=== PATIENT | male | born 1970 | race African-American/Black ===

== ENCOUNTER 2018-11-21 07:45 | Inpatient (IN) ==
[2018-11-21] MEDS ORDERED: SODIUM CHLORIDE 0.9% 2,400 ML IV ONE ×2 (08:15→09:11)
[2018-11-21] MEDS ORDERED: VANCOMYCIN INJ 1,500 MG in SODIUM CHLORIDE 0.9% 500 ML IV STA (08:16)
[2018-11-21] MEDS ORDERED: CLINDAMYCIN INJ 600 MG in PREMIX 1 EACH IV STA (08:17)
[2018-11-21] MEDS ORDERED: LEVOFLOXACIN INJ 500 MG in PREMIX 1 EACH IV STA (08:17)
[2018-11-21 08:58] LABS: Red Blood Count 6.48 MC/CUMM (3.8-5.5); White Blood Count 5.8 T/CUMM (4-12)
[2018-11-21 08:59] LABS: Hematocrit 46.6 VOL% (42.0-52.0); Hemoglobin 15.8 GM/DL (14.0-18.0); Mean Corpuscular HGB Conc 33.9 GM/DL (32-36); Mean Corpuscular Volume 71.9 FL (87-102); Mean Platelet Volume 10.2 FL (9.6-12.0); Platelet Count 207 T/CUMM (130-400); Red Cell Distribution Width 14.9 % (9.3-17.3)
[2018-11-21 09:00] LABS: Alanine Aminotransferase 173 U/L (16-61); Albumin 1.9 G/DL (3.4-5.0); Alkaline Phosphatase 131 U/L (45-117); Aspartate Amino Transferase 522 U/L (0-37); Basophils % 0.3 % (0.0-0.8); Blood Urea Nitrogen 51 MG/DL (7-18); Calcium 8.9 MG/DL (8.5-10.1); Eosinophils % 0.2 % (0.00-10.9); Glucose 160 MG/DL (74-106); Immature Granulocytes % 1.4 %; Immature Granulocytes Absolute 0.08 #; Lymphocytes # 0.6 10*3/uL (1.4-4.0); Lymphocytes % 9.9 % (21.2-54.2); Monocytes % 2.4 % (1.7-12.7); Neutrophils % 85.8 % (38.7-73.9); Osmolality,Calculated 276.8 MOS/KG (273-304); Total Protein 7.8 G/DL (6.4-8.3)
[2018-11-21] MEDS ORDERED: BISACODYL 5 MG TABLET PO PRN (09:07)
[2018-11-21] MEDS ORDERED: ALBUTEROL/IPRATROPIUM 3 ML NEB RESP TX PRN (09:07)
[2018-11-21] MEDS ORDERED: ONDANSETRON 4 MG/2 ML VIAL IV PRN (09:07)
[2018-11-21] MEDS ORDERED: VANCOMYCIN INJ 1,250 MG in SODIUM CHLORIDE 0.9% 500 ML IV SCH (09:30)
[2018-11-21 09:41] LABS: INR 1.3; PT Patient Result 13.9 SECS
[2018-11-21 10:34] LABS: Hepatitis B Core IgM Quant 0.06 Index; Hepatitis B Surface Ag Quant 0.16 Index; Hepatitis B Surface Ag Result Negative (Negative); Hepatitis C Virus Ab Quant < 0.02 Index; Hepatitis C Virus Ab Result Negative (Negative)
[2018-11-21] MEDS: HYDROmorphone 2 MG/1 ML VIAL IV PRN (11:03)
[2018-11-21] MEDS: GENTAMICIN INJ 400 MG in SODIUM CHLORIDE 0.9% 100 ML IV SCH (11:44)
[2018-11-21 12:13] LABS: Apearance,Urine Slightly Hazy (Clear); Bilirubin,Urine Negative (Negative); Blood, Urine Large mg/dL (Negative); Glucose,Urine (UA) Negative (Negative); Hyaline Casts,Urine 5 /LPF (0-3); Ketones,Urine Negative (Negative); Mucus,Urine Occasional /LPF (Occasional); Nitrite,Urine Negative (Negative); Protein,Urine 30 MG/DL; RBC,Urine 1 /HPF (0-4); Sperm,Urine Occasional /HPF (Negative); Squamous Epithelial Cell,Urine Occasional /HPF (0-10); Urine Color Amber (Yellow); Urine Specific Gravity 1.013 (1.001-1.035); Urine Urobilinogen < 2.0 EU/DL (0.2-1.0); WBC,Urine 2 /HPF (0-6)
[2018-11-21] MEDS: PIPERACILLIN/TAZOBACTAM 3,375 MG in SODIUM CHLORIDE 0.9% 100 ML IV SCH ×2 (12:30→20:42)
[2018-11-21] MEDS ORDERED: HEPARIN/NACL 0.9% 2 UNITS/ML 500 ML IV ONE (13:34)
[2018-11-21] MEDS ORDERED: fentaNYL 100 MCG/2 ML VIAL ONE (13:46)
[2018-11-21] MEDS ORDERED: KETAMINE 500 MG/10 ML VIAL ONE (13:46)
[2018-11-21] MEDS ORDERED: MIDAZOLAM 2 MG/2 ML VIAL ONE (13:46)
[2018-11-21] MEDS ORDERED: PROPOFOL 200 MG/20 ML VIAL IV ONE (13:46)
[2018-11-21] MEDS ORDERED: PHENYLEPHRINE 1 MG/10 ML SYRINGE IV ONE (13:47)
[2018-11-21] MEDS ORDERED: LACTATED RINGERS 1,000 ML IV ONE (14:56)
[2018-11-21] MEDS: LACTATED RINGERS 1,000 ML IV SCH ×2 (16:15→20:43)
[2018-11-21 16:45] LABS: Hematocrit 29.4 VOL% (42.0-52.0)
[2018-11-21 16:54] LABS: Hemoglobin 9.9 GM/DL (14.0-18.0)
[2018-11-21] MEDS ORDERED: SODIUM CHLORIDE 0.9% 2,000 ML IV ONE ×2 (17:11→19:33)
[2018-11-21] MEDS ORDERED: ALBUMIN 5% 12.5 GM in PREMIX 1 EACH IV ONE ×2 (19:34→20:03)
[2018-11-21] MEDS: NOREPINEPHRINE 8 MG in SODIUM CHLORIDE 0.9% 242 ML IV PRN (19:45)
[2018-11-21] MEDS: ACETAMINOPHEN 325 MG TABLET PO PRN (22:17)
[2018-11-22] MEDS: LACTATED RINGERS 1,000 ML IV SCH ×7 (00:23→22:58)
[2018-11-22] MEDS: HYDROmorphone 2 MG/1 ML VIAL IV PRN ×3 (02:54→19:27)
[2018-11-22] MEDS: PIPERACILLIN/TAZOBACTAM 3,375 MG in SODIUM CHLORIDE 0.9% 100 ML IV SCH ×3 (04:32→19:32)
[2018-11-22 04:45] LABS: Basophils % 0.6 % (0.0-0.8); Eosinophils # 0.1 10*3/uL (0.0-0.87); Eosinophils % 2.1 % (0.00-10.9); Hemoglobin 8.4 GM/DL (14.0-18.0); Immature Granulocytes Absolute 0.13 #; Lymphocytes # 0.2 10*3/uL (1.4-4.0); Lymphocytes % 5.2 % (21.2-54.2); Mean Corpuscular HGB Conc 33.6 GM/DL (32-36); Mean Corpuscular Volume 73.1 FL (87-102); Mean Platelet Volume 11.4 FL (9.6-12.0); Monocytes % 2.4 % (1.7-12.7); Neutrophils % 85.7 % (38.7-73.9); Platelet Count 74 T/CUMM (130-400); Red Blood Count 3.42 MC/CUMM (3.8-5.5); White Blood Count 3.3 T/CUMM (4-12)
[2018-11-22 05:07] LABS: Albumin 1.4 G/DL (3.4-5.0); Bilirubin,Total 4.5 MG/DL (0.2-1.0); Calcium 6.4 MG/DL (8.5-10.1); Osmolality,Calculated 293.1 MOS/KG (273-304); Total Protein 4.4 G/DL (6.4-8.3)
[2018-11-22] MEDS ORDERED: DEXTROSE 10% 250 ML BAG IV ONE (05:24)
[2018-11-22 05:25] LABS: INR 1.2; PT Patient Result 13.4 SECS
[2018-11-22] MEDS ORDERED: GLUCAGON 1 MG VIAL IM ONE (05:25)
[2018-11-22 05:33] LABS: Band Neutrophils 9 % (0-10); Eosinophils 2 % (0-10); Lymphocytes 11 % (20-55); Metamyelocytes 1 %; Myelocytes 1 %; Segmented Neutrophils 72 % (50-85); Total Cells Counted 100
[2018-11-22 05:34] LABS: Anisocytosis Slight; Hypochromasia 1+; Microcytosis 1+; Target Cells Slight
[2018-11-22 05:35] LABS: Platelet Estimate Decreased; Toxic Granulation 1+
[2018-11-22] MEDS ORDERED: SODIUM CHLORIDE 0.9% 1,000 ML IV PRN ×2 (08:20→08:25)
[2018-11-22] MEDS ORDERED: PANTOPRAZOLE 40 MG TABLET PO SCH (09:00)
[2018-11-22] MEDS: NOREPINEPHRINE 8 MG in SODIUM CHLORIDE 0.9% 242 ML IV PRN ×2 (09:05→22:59)
[2018-11-22] MEDS ORDERED: MAGNESIUM SULF RIDER 2 GM in PREMIX 1 EACH IV ONE (10:24)
[2018-11-22] MEDS ORDERED: POTASSIUM CHLORIDE RIDER 20 MEQ in PREMIX 1 EACH IV ONE (10:25)
[2018-11-22] MEDS: VANCOMYCIN INJ 1,250 MG in SODIUM CHLORIDE 0.9% 250 ML IV SCH (11:05)
[2018-11-22] MEDS ORDERED: MIDAZOLAM 2 MG/2 ML VIAL ONE (15:58)
[2018-11-22] MEDS ORDERED: fentaNYL 100 MCG/2 ML VIAL ONE (15:58)
[2018-11-22] MEDS ORDERED: MIDAZOLAM 10 MG/2 ML VIAL ONE (15:58)
[2018-11-22] MEDS ORDERED: ETOMIDATE 40 MG/20 ML VIAL IV ONE (15:58)
[2018-11-22] MEDS ORDERED: SEVOFLURANE 1 UNIT/15 MINUTE INH ONE (15:58)
[2018-11-22] MEDS ORDERED: LACTATED RINGERS 1,000 ML IV ONE (15:59)
[2018-11-22] MEDS ORDERED: PHENYLEPHRINE 1 MG/10 ML SYRINGE IV ONE (15:59)
[2018-11-22] MEDS ORDERED: ROCURONIUM 100 MG/10 ML VIAL IV ONE (15:59)
[2018-11-22] MEDS: PROPOFOL 1,000 MG/100 ML BOTTLE IV SCH (16:11)
[2018-11-22 16:22] LABS: Basophils # 0.1 10*3/uL (0.0-0.2); Basophils % 1.3 % (0.0-0.8); Eosinophils # 0.2 10*3/uL (0.0-0.87); Eosinophils % 3.2 % (0.00-10.9); Hematocrit 28.7 VOL% (42.0-52.0); Hemoglobin 9.4 GM/DL (14.0-18.0); Immature Granulocytes % 2.1 %; Lymphocytes # 0.3 10*3/uL (1.4-4.0); Lymphocytes % 6.7 % (21.2-54.2); Mean Corpuscular HGB Conc 32.8 GM/DL (32-36); Mean Corpuscular Volume 78.6 FL (87-102); Mean Platelet Volume 11.8 FL (9.6-12.0); Monocytes % 2.7 % (1.7-12.7); NRBC # 0.02 10*3/uL; Platelet Count 94 T/CUMM (130-400); Red Blood Count 3.65 MC/CUMM (3.8-5.5); Red Cell Distribution Width 17.9 % (9.3-17.3); White Blood Count 4.8 T/CUMM (4-12)
[2018-11-22 16:39] LABS: INR 1.3; PT Patient Result 13.7 SECS; Partial Thromboplastin Time 34.8 SECS (20-40)
[2018-11-22 17:17] LABS: Acanthocytes Few; Band Neutrophils 10 % (0-10); Eosinophils 2 % (0-10); Lymphocytes 7 % (20-55); Segmented Neutrophils 77 % (50-85)
[2018-11-22 17:18] LABS: Burr Cells Few; Platelet Estimate Decreased; Spherocytes Few; Total Cells Counted 100
[2018-11-22 17:46] LABS: ABG Base Excess -11.8 MMOL/L (-2.5-2.5); ABG HCO3 15.2 MMOL/L (20-26); ABG TCO2 13.2 MMOL/L (23-27); Allen Test Positive; Pt O2 Delivery Device Ventilator
[2018-11-22] MEDS ORDERED: SODIUM CHLORIDE 0.9% 1,000 ML IV ONE (18:48)
[2018-11-23] MEDS: DEXTROSE 10% 250 ML BAG IV PRN ×4 (00:15→14:58)
[2018-11-23] MEDS: HYDROmorphone 2 MG/1 ML VIAL IV PRN ×3 (00:55→12:00)
[2018-11-23 01:51] LABS: Basophils # 0.1 10*3/uL (0.0-0.2); Basophils % 1.3 % (0.0-0.8); Eosinophils # 0.2 10*3/uL (0.0-0.87); Eosinophils % 3.3 % (0.00-10.9); Hematocrit 24.4 VOL% (42.0-52.0); Hemoglobin 8.1 GM/DL (14.0-18.0); Immature Granulocytes % 2.2 %; Immature Granulocytes Absolute 0.12 #; Lymphocytes # 0.6 10*3/uL (1.4-4.0); Lymphocytes % 10.2 % (21.2-54.2); Mean Corpuscular HGB Conc 33.2 GM/DL (32-36); Mean Platelet Volume 12.5 FL (9.6-12.0); Monocytes % 1.3 % (1.7-12.7); Neutrophils % 81.7 % (38.7-73.9); Platelet Count 64 T/CUMM (130-400); Red Blood Count 3.13 MC/CUMM (3.8-5.5); Red Cell Distribution Width 17.6 % (9.3-17.3); White Blood Count 5.4 T/CUMM (4-12)
[2018-11-23 02:06] LABS: ABG Base Excess -11.7 MMOL/L (-2.5-2.5); ABG HCO3 15.2 MMOL/L (20-26); ABG Oxygen Saturation 98.5 % (95-100); ABG PCO2 33.2 MM HG (35-48); ABG PH 7.253 (7.35-7.45); ABG TCO2 13.8 MMOL/L (23-27)
[2018-11-23 02:12] LABS: Albumin 1.1 G/DL (3.4-5.0); Bilirubin,Total 4.7 MG/DL (0.2-1.0); Calcium 6.5 MG/DL (8.5-10.1); Osmolality,Calculated 301.7 MOS/KG (273-304); Total Protein 4.2 G/DL (6.4-8.3)
[2018-11-23] MEDS ORDERED: ALBUMIN 25% 25 GM in PREMIX 1 EACH IV ONE (02:17)
[2018-11-23] MEDS ORDERED: SODIUM CHLORIDE 0.9% 1,000 ML IV ONE ×3 (02:17→13:40)
[2018-11-23 03:05] LABS: Band Neutrophils 9 % (0-10); Eosinophils 1 % (0-10); Lymphocytes 17 % (20-55); Metamyelocytes 3 %; Myelocytes 1 %; Segmented Neutrophils 67 % (50-85); Total Cells Counted 100
[2018-11-23 03:06] LABS: Anisocytosis 1+; Hypochromasia Slight; Microcytosis 1+; Target Cells Few
[2018-11-23 03:07] LABS: Burr Cells Few; Platelet Estimate Decreased
[2018-11-23] MEDS: PIPERACILLIN/TAZOBACTAM 3,375 MG in SODIUM CHLORIDE 0.9% 100 ML IV SCH ×3 (03:55→19:45)
[2018-11-23] MEDS: LACTATED RINGERS 1,000 ML IV SCH ×2 (04:06→05:40)
[2018-11-23] MEDS: NOREPINEPHRINE 16 MG in SODIUM CHLORIDE 0.9% 234 ML IV PRN ×2 (05:12→18:23)
[2018-11-23] MEDS ORDERED: SODIUM BICARB INJ 100 MEQ in SODIUM CHLORIDE 0.45% 1,000 ML IV SCH (08:00)
[2018-11-23] MEDS ORDERED: DEXTROSE 50% 25 GM/50 ML VIAL IV PRN (08:22)
[2018-11-23] MEDS ORDERED: GLUCAGON 1 MG VIAL IM PRN (08:22)
[2018-11-23] MEDS: FAMOTIDINE 20 MG/2 ML VIAL IV SCH ×2 (08:37→20:40)
[2018-11-23] MEDS: PROPOFOL 1,000 MG/100 ML BOTTLE IV SCH ×3 (08:55→21:25)
[2018-11-23] MEDS ORDERED: CALCIUM GLUCONATE 1,000 MG in SODIUM CHLORIDE 0.9% 100 ML IV ONE (09:00)
[2018-11-23] MEDS: VANCOMYCIN INJ 1,250 MG in SODIUM CHLORIDE 0.9% 250 ML IV SCH (10:27)
[2018-11-23] MEDS: GENTAMICIN INJ 400 MG in SODIUM CHLORIDE 0.9% 100 ML IV SCH (10:27)
[2018-11-23 10:48] LABS: Hematocrit 28.2 VOL% (42.0-52.0); Hemoglobin 9.3 GM/DL (14.0-18.0)
[2018-11-23] MEDS: SODIUM HYPOCHLORITE 0.25% IRRIG 473 ML BOTTLE TOP SCH (12:25)
[2018-11-23] MEDS ORDERED: SODIUM CHLORIDE 0.9% 1,000 ML IV SCH (13:40)
[2018-11-23] MEDS ORDERED: SODIUM CHLORIDE 0.9% 1,000 ML IV PRN (14:54)
[2018-11-23] MEDS: SODIUM BICARB INJ 100 MEQ in DEXTROSE 5% NACL 0.22% 1,000 ML IV SCH (15:51)
[2018-11-23] MEDS: INSULIN REGULAR 100 UNIT/ML SUBCUT SCH (18:01)
[2018-11-24] MEDS: INSULIN REGULAR 100 UNIT/ML SUBCUT SCH ×5 (00:15→23:39)
[2018-11-24] MEDS: HYDROmorphone 2 MG/1 ML VIAL IV PRN (00:16)
[2018-11-24] MEDS: SODIUM BICARB INJ 100 MEQ in DEXTROSE 5% NACL 0.22% 1,000 ML IV SCH ×3 (01:09→19:56)
[2018-11-24 03:22] LABS: ABG Base Excess -7.6 MMOL/L (-2.5-2.5); ABG HCO3 18.4 MMOL/L (20-26); ABG Oxygen Saturation 98.9 % (95-100); ABG PCO2 30.1 MM HG (35-48); ABG PH 7.354 (7.35-7.45); ABG TCO2 14.7 MMOL/L (23-27)
[2018-11-24 03:30] LABS: Basophils % 0.2 % (0.0-0.8); Eosinophils # 0.4 10*3/uL (0.0-0.87); Eosinophils % 7.6 % (0.00-10.9); Hematocrit 26.9 VOL% (42.0-52.0); Immature Granulocytes Absolute 0.44 #; Lymphocytes # 0.3 10*3/uL (1.4-4.0); Lymphocytes % 5.8 % (21.2-54.2); Mean Corpuscular HGB Conc 33.5 GM/DL (32-36); Mean Corpuscular Volume 80.8 FL (87-102); Mean Platelet Volume 11.2 FL (9.6-12.0); Monocytes % 4.5 % (1.7-12.7); NRBC # 0.04 10*3/uL; Neutrophils % 73.9 % (38.7-73.9); Red Blood Count 3.33 MC/CUMM (3.8-5.5); Red Cell Distribution Width 19.5 % (9.3-17.3); White Blood Count 5.5 T/CUMM (4-12)
[2018-11-24 03:40] LABS: Platelet Count 32 T/CUMM (130-400)
[2018-11-24 04:06] LABS: Calcium 6.3 MG/DL (8.5-10.1); Osmolality,Calculated 297.7 MOS/KG (273-304)
[2018-11-24 04:11] LABS: Band Neutrophils 13 % (0-10); Eosinophils 11 % (0-10); Lymphocytes 12 % (20-55); Myelocytes 1 %; Segmented Neutrophils 59 % (50-85); Total Cells Counted 100
[2018-11-24 04:12] LABS: Hypochromasia 1+; Microcytosis 1+; Ovalocytes Slight; Platelet Estimate Decreased
[2018-11-24] MEDS: PIPERACILLIN/TAZOBACTAM 3,375 MG in SODIUM CHLORIDE 0.9% 100 ML IV SCH (04:15)
[2018-11-24] MEDS: DEXTROSE 10% 250 ML BAG IV PRN ×2 (04:27→12:58)
[2018-11-24] MEDS: PROPOFOL 1,000 MG/100 ML BOTTLE IV SCH ×4 (07:07→23:04)
[2018-11-24] MEDS ORDERED: SODIUM HYPOCHLORITE 0.25% IRRIG 473 ML BOTTLE ONE (10:47)
[2018-11-24] MEDS: MEROPENEM 500 MG in SODIUM CHLORIDE 0.9% 100 ML IV SCH ×3 (11:02→23:40)
[2018-11-24] MEDS: VANCOMYCIN INJ 1,250 MG in SODIUM CHLORIDE 0.9% 250 ML IV SCH (11:11)
[2018-11-24] MEDS: FAMOTIDINE 20 MG/2 ML VIAL IV SCH ×2 (11:16→20:05)
[2018-11-24] MEDS ORDERED: HYDROmorphone 2 MG/1 ML VIAL IV ONE (12:55)
[2018-11-24] MEDS: SODIUM HYPOCHLORITE 0.25% IRRIG 473 ML BOTTLE TOP SCH (13:58)
[2018-11-24] MEDS: CLINDAMYCIN INJ 900 MG in PREMIX 1 EACH IV SCH ×2 (14:36→21:23)
[2018-11-24] MEDS ORDERED: ACETAMINOPHEN 325 MG/10.15 ML UDCUP PO ONE (20:13)
[2018-11-24] MEDS ORDERED: SODIUM CHLORIDE 0.9% 1,000 ML IV ONE (20:14)
[2018-11-24] MEDS: NOREPINEPHRINE 16 MG in SODIUM CHLORIDE 0.9% 234 ML IV PRN (23:10)
[2018-11-25 04:36] LABS: Basophils % 0.2 % (0.0-0.8); Eosinophils # 0.2 10*3/uL (0.0-0.87); Eosinophils % 4.3 % (0.00-10.9); Hematocrit 25.5 VOL% (42.0-52.0); Hemoglobin 8.6 GM/DL (14.0-18.0); Immature Granulocytes Absolute 0.11 #; Lymphocytes # 0.5 10*3/uL (1.4-4.0); Lymphocytes % 9.8 % (21.2-54.2); Mean Corpuscular HGB Conc 33.7 GM/DL (32-36); Mean Corpuscular Volume 79.7 FL (87-102); Mean Platelet Volume 11.3 FL (9.6-12.0); NRBC # 0.03 10*3/uL; Neutrophils % 81.7 % (38.7-73.9); Red Cell Distribution Width 19.1 % (9.3-17.3); White Blood Count 5.4 T/CUMM (4-12)
[2018-11-25 04:39] LABS: ABG Base Excess -1.6 MMOL/L (-2.5-2.5); ABG HCO3 23.1 MMOL/L (20-26); ABG PCO2 30.9 MM HG (35-48); ABG PH 7.455 (7.35-7.45)
[2018-11-25 04:40] LABS: Platelet Count 30 T/CUMM (130-400)
[2018-11-25 04:59] LABS: Bilirubin,Direct 4.83 MG/DL (0.0-0.20); Bilirubin,Total 5.4 MG/DL (0.2-1.0); Bilirubin,Total 5.8 MG/DL (0.2-1.0); Calcium 6.8 MG/DL (8.5-10.1); Osmolality,Calculated 304.3 MOS/KG (273-304); Total Protein 4.1 G/DL (6.4-8.3); Total Protein 4.7 G/DL (6.4-8.3)
[2018-11-25 05:15] LABS: Band Neutrophils 17 % (0-10); Eosinophils 5 % (0-10); Lymphocytes 12 % (20-55); Metamyelocytes 5 %; Platelet Estimate Decreased; Segmented Neutrophils 57 % (50-85); Total Cells Counted 100
[2018-11-25 05:16] LABS: Hypochromasia 2+; Target Cells 1+
[2018-11-25] MEDS: INSULIN REGULAR 100 UNIT/ML SUBCUT SCH ×4 (06:04→23:20)
[2018-11-25] MEDS: CLINDAMYCIN INJ 900 MG in PREMIX 1 EACH IV SCH ×3 (06:04→21:30)
[2018-11-25] MEDS: SODIUM BICARB INJ 100 MEQ in DEXTROSE 5% NACL 0.22% 1,000 ML IV SCH ×2 (06:05→16:45)
[2018-11-25] MEDS ORDERED: LACTATED RINGERS 1,000 ML IV ONE (06:26)
[2018-11-25] MEDS: POTASSIUM CHLORIDE RIDER 10 MEQ in PREMIX 1 EACH IV PRN ×5 (07:02→22:02)
[2018-11-25] MEDS: MEROPENEM 500 MG in SODIUM CHLORIDE 0.9% 100 ML IV SCH (08:13)
[2018-11-25] MEDS: FAMOTIDINE 20 MG/2 ML VIAL IV SCH ×2 (08:14→21:15)
[2018-11-25] MEDS: SODIUM HYPOCHLORITE 0.25% IRRIG 473 ML BOTTLE TOP SCH (08:19)
[2018-11-25 09:56] LABS: INR 1.1; PT Patient Result 12.2 SECS (9.6-12.2); Partial Thromboplastin Time 34.5 SECS (20.8-36.0)
[2018-11-25] MEDS ORDERED: SEVOFLURANE 1 UNIT/15 MINUTE INH ONE (11:36)
[2018-11-25] MEDS ORDERED: SODIUM CHLORIDE 0.9% 250 ML IV ONE (11:37)
[2018-11-25] MEDS ORDERED: ROCURONIUM 100 MG/10 ML VIAL IV ONE (11:37)
[2018-11-25] MEDS ORDERED: PHENYLEPHRINE 1 MG/10 ML SYRINGE IV ONE (11:37)
[2018-11-25] MEDS ORDERED: MIDAZOLAM 2 MG/2 ML VIAL ONE (11:37)
[2018-11-25] MEDS ORDERED: PHENYLEPHRINE 10 MG/1 ML VIAL IV ONE (11:37)
[2018-11-25] MEDS ORDERED: CALCIUM GLUCONATE 2,000 MG in SODIUM CHLORIDE 0.9% 100 ML IV ONE (12:00)
[2018-11-25] MEDS: GENTAMICIN INJ 400 MG in SODIUM CHLORIDE 0.9% 100 ML IV SCH (12:44)
[2018-11-25] MEDS: VANCOMYCIN INJ 1,250 MG in SODIUM CHLORIDE 0.9% 250 ML IV SCH (12:44)
[2018-11-25] MEDS: fentaNYL INJ 1,250 MCG in SODIUM CHLORIDE 0.9% 225 ML IV PRN ×2 (12:50→21:01)
[2018-11-25] MEDS ORDERED: LEVOFLOXACIN INJ 750 MG in PREMIX 1 EACH IV SCH (15:00)
[2018-11-25] MEDS: POTASSIUM CHLORIDE RIDER 20 MEQ in PREMIX 1 EACH IV PRN (20:09)
[2018-11-25] MEDS ORDERED: ENOXAPARIN 40 MG/0.4 ML SYRINGE SUBCUT SCH (21:00)
[2018-11-26] MEDS: fentaNYL INJ 1,250 MCG in SODIUM CHLORIDE 0.9% 225 ML IV PRN ×3 (03:46→20:34)
[2018-11-26] MEDS: SODIUM BICARB INJ 100 MEQ in DEXTROSE 5% NACL 0.22% 1,000 ML IV SCH ×3 (03:46→14:38)
[2018-11-26 03:54] LABS: ABG Base Excess 0.6 MMOL/L (-2.5-2.5); ABG HCO3 24.9 MMOL/L (20-26); ABG Oxygen Saturation 98.7 % (95-100); ABG PCO2 38.8 MM HG (35-48); ABG PH 7.417 (7.35-7.45); ABG TCO2 22.8 MMOL/L (23-27)
[2018-11-26 04:03] LABS: Basophils # 0.1 10*3/uL (0.0-0.2); Basophils % 1.7 % (0.0-0.8); Eosinophils # 0.1 10*3/uL (0.0-0.87); Eosinophils % 2.8 % (0.00-10.9); Hematocrit 21.3 VOL% (42.0-52.0); Immature Granulocytes Absolute 0.09 #; Lymphocytes # 0.5 10*3/uL (1.4-4.0); Lymphocytes % 11.5 % (21.2-54.2); Mean Corpuscular HGB Conc 32.9 GM/DL (32-36); Mean Corpuscular Volume 81.6 FL (87-102); Mean Platelet Volume 12.1 FL (9.6-12.0); Monocytes % 3.5 % (1.7-12.7); NRBC # 0.03 10*3/uL; Neutrophils % 78.5 % (38.7-73.9); Red Blood Count 2.61 MC/CUMM (3.8-5.5); Red Cell Distribution Width 19.4 % (9.3-17.3); White Blood Count 4.6 T/CUMM (4-12)
[2018-11-26 04:04] LABS: Platelet Count 26 T/CUMM (130-400)
[2018-11-26] MEDS: CLINDAMYCIN INJ 900 MG in PREMIX 1 EACH IV SCH ×3 (05:30→21:28)
[2018-11-26 06:17] LABS: Band Neutrophils 3 % (0-10); Eosinophils 4 % (0-10); Hypochromasia 2+; Lymphocytes 16 % (20-55); Metamyelocytes 1 %; Myelocytes 1 %; Nucleated Red Blood Cells 1 (0-5); Platelet Estimate Decreased; Reactive Lymphocytes Few; Segmented Neutrophils 72 % (50-85)
[2018-11-26 06:18] LABS: Target Cells Few; Total Cells Counted 100
[2018-11-26] MEDS: INSULIN REGULAR 100 UNIT/ML SUBCUT SCH ×3 (06:19→18:09)
[2018-11-26] MEDS: SODIUM HYPOCHLORITE 0.25% IRRIG 473 ML BOTTLE TOP SCH (09:05)
[2018-11-26] MEDS: FAMOTIDINE 20 MG/2 ML VIAL IV SCH ×2 (09:06→21:26)
[2018-11-26] MEDS: SODIUM CHLORIDE 0.9% 250 ML IV SCH ×2 (09:31→22:38)
[2018-11-26] MEDS: VANCOMYCIN INJ 1,250 MG in SODIUM CHLORIDE 0.9% 250 ML IV SCH (10:20)
[2018-11-26] MEDS: ACETAMINOPHEN 325 MG TABLET PO PRN (15:01)
[2018-11-26] MEDS: HYDROmorphone 2 MG/1 ML VIAL IV PRN (15:24)
[2018-11-27] MEDS: SODIUM BICARB INJ 100 MEQ in DEXTROSE 5% NACL 0.22% 1,000 ML IV SCH ×5 (00:02→23:50)
[2018-11-27] MEDS: INSULIN REGULAR 100 UNIT/ML SUBCUT SCH ×4 (00:04→17:22)
[2018-11-27] MEDS: HYDROmorphone 2 MG/1 ML VIAL IV PRN ×2 (01:44→14:33)
[2018-11-27] MEDS: fentaNYL INJ 1,250 MCG in SODIUM CHLORIDE 0.9% 225 ML IV PRN ×3 (04:00→19:26)
[2018-11-27 04:27] LABS: Basophils % 0.4 % (0.0-0.8); Eosinophils # 0.2 10*3/uL (0.0-0.87); Eosinophils % 2.1 % (0.00-10.9); Hematocrit 27.9 VOL% (42.0-52.0); Hemoglobin 9.4 GM/DL (14.0-18.0); Immature Granulocytes Absolute 0.14 #; Lymphocytes # 0.7 10*3/uL (1.4-4.0); Lymphocytes % 10.3 % (21.2-54.2); Mean Corpuscular HGB Conc 33.7 GM/DL (32-36); Mean Corpuscular Volume 82.5 FL (87-102); Monocytes % 3.8 % (1.7-12.7); NRBC # 0.06 10*3/uL; Neutrophils % 81.4 % (38.7-73.9); Red Blood Count 3.38 MC/CUMM (3.8-5.5); Red Cell Distribution Width 18.3 % (9.3-17.3)
[2018-11-27 04:30] LABS: Platelet Count 19 T/CUMM (130-400)
[2018-11-27 04:42] LABS: ABG Base Excess 2.5 MMOL/L (-2.5-2.5); ABG HCO3 26.7 MMOL/L (20-26); ABG Oxygen Saturation 99.1 % (95-100); ABG PH 7.451 (7.35-7.45); ABG TCO2 24.1 MMOL/L (23-27)
[2018-11-27 04:50] LABS: Band Neutrophils 5 % (0-10); Eosinophils 4 % (0-10); Lymphocytes 15 % (20-55); Nucleated Red Blood Cells 2 (0-5); Platelet Estimate Decreased; Segmented Neutrophils 68 % (50-85); Total Cells Counted 100
[2018-11-27 04:51] LABS: Hypochromasia 1+
[2018-11-27 05:14] LABS: Albumin 0.9 G/DL (3.4-5.0); Bilirubin,Total 4.6 MG/DL (0.2-1.0); Calcium 6.4 MG/DL (8.5-10.1); Osmolality,Calculated 308.9 MOS/KG (273-304); Total Protein 4.6 G/DL (6.4-8.3)
[2018-11-27 05:19] LABS: Prealbumin < 3.0 MG/DL (20-40)
[2018-11-27] MEDS: CLINDAMYCIN INJ 900 MG in PREMIX 1 EACH IV SCH (05:41)
[2018-11-27] MEDS: POTASSIUM CHLORIDE RIDER 20 MEQ in PREMIX 1 EACH IV PRN ×3 (05:57→16:02)
[2018-11-27] MEDS: SODIUM HYPOCHLORITE 0.25% IRRIG 473 ML BOTTLE TOP SCH (08:32)
[2018-11-27] MEDS: FAMOTIDINE 20 MG/2 ML VIAL IV SCH ×2 (08:33→20:15)
[2018-11-27] MEDS: SODIUM CHLORIDE 0.9% 250 ML IV SCH ×2 (09:40→22:57)
[2018-11-27] MEDS: NOREPINEPHRINE 16 MG in SODIUM CHLORIDE 0.9% 234 ML IV PRN (11:52)
[2018-11-27] MEDS: ACETAMINOPHEN 325 MG TABLET PO PRN ×2 (12:02→20:15)
[2018-11-27] MEDS ORDERED: SODIUM CHLORIDE 0.9% 1,000 ML IV PRN (13:26)
[2018-11-27] MEDS: MEROPENEM 500 MG in SODIUM CHLORIDE 0.9% 100 ML IV SCH ×2 (15:22→20:30)
[2018-11-28] MEDS: INSULIN REGULAR 100 UNIT/ML SUBCUT SCH ×5 (00:02→23:55)
[2018-11-28] MEDS: fentaNYL INJ 1,250 MCG in SODIUM CHLORIDE 0.9% 225 ML IV PRN ×3 (02:01→22:12)
[2018-11-28] MEDS: ACETAMINOPHEN 325 MG TABLET PO PRN (02:02)
[2018-11-28] MEDS: MEROPENEM 500 MG in SODIUM CHLORIDE 0.9% 100 ML IV SCH ×3 (03:15→18:13)
[2018-11-28 03:33] LABS: ABG Base Excess 2.9 MMOL/L (-2.5-2.5); ABG HCO3 27.1 MMOL/L (20-26); ABG Oxygen Saturation 98.6 % (95-100); ABG PCO2 36.4 MM HG (35-48); ABG TCO2 24.1 MMOL/L (23-27)
[2018-11-28 03:52] LABS: Albumin 0.9 G/DL (3.4-5.0); Bilirubin,Total 4.9 MG/DL (0.2-1.0); Calcium 7.1 MG/DL (8.5-10.1); Total Protein 5.6 G/DL (6.4-8.3)
[2018-11-28] MEDS: POTASSIUM CHLORIDE RIDER 20 MEQ in PREMIX 1 EACH IV PRN (05:03)
[2018-11-28 05:33] LABS: Basophils # 0.1 10*3/uL (0.0-0.2); Basophils % 0.7 % (0.0-0.8); Eosinophils # 0.1 10*3/uL (0.0-0.87); Eosinophils % 1.5 % (0.00-10.9); Hematocrit 28.8 VOL% (42.0-52.0); Hemoglobin 9.7 GM/DL (14.0-18.0); Immature Granulocytes % 1.9 %; Immature Granulocytes Absolute 0.14 #; Lymphocytes # 0.9 10*3/uL (1.4-4.0); Lymphocytes % 12.2 % (21.2-54.2); Mean Corpuscular HGB Conc 33.7 GM/DL (32-36); Mean Corpuscular Volume 83.5 FL (87-102); Monocytes % 2.1 % (1.7-12.7); NRBC # 0.07 10*3/uL; Neutrophils % 81.6 % (38.7-73.9); Red Blood Count 3.45 MC/CUMM (3.8-5.5); Red Cell Distribution Width 18.8 % (9.3-17.3); White Blood Count 7.3 T/CUMM (4-12)
[2018-11-28 05:36] LABS: Platelet Count 31 T/CUMM (130-400)
[2018-11-28 06:20] LABS: Anisocytosis 1+; Band Neutrophils 21 % (0-10); Eosinophils 1 % (0-10); Hypochromasia 2+; Lymphocytes 18 % (20-55); Macrocytosis 1+; Metamyelocytes 3 %; Myelocytes 2 %; Platelet Estimate Decreased; Segmented Neutrophils 53 % (50-85); Target Cells 2+; Total Cells Counted 100
[2018-11-28] MEDS ORDERED: LACTATED RINGERS 1,000 ML IV ONE ×2 (07:20→23:24)
[2018-11-28] MEDS ORDERED: ALBUMIN 25% 25 GM in PREMIX 1 EACH IV ONE (07:28)
[2018-11-28] MEDS ORDERED: CALCIUM GLUCONATE 2,000 MG in SODIUM CHLORIDE 0.9% 100 ML IV ONE (08:00)
[2018-11-28] MEDS: SODIUM HYPOCHLORITE 0.25% IRRIG 473 ML BOTTLE TOP SCH (08:07)
[2018-11-28] MEDS: FAMOTIDINE 20 MG/2 ML VIAL IV SCH (08:35)
[2018-11-28] MEDS: SODIUM BICARB INJ 100 MEQ in DEXTROSE 5% NACL 0.22% 1,000 ML IV SCH ×2 (10:24→21:50)
[2018-11-28] MEDS ORDERED: SODIUM CHLORIDE 0.9% 1,000 ML IV PRN (11:32)
[2018-11-28] MEDS ORDERED: BUPIVACAINE MPF 0.25% 30 ML VIAL ONE (12:39)
[2018-11-28] MEDS ORDERED: LIDOCAINE 1% 20 ML VIAL ONE (12:39)
[2018-11-28 12:54] LABS: INR 1.2; PT Patient Result 12.8 SECS (9.6-12.2)
[2018-11-28] MEDS ORDERED: FAT EMULSION 20% 250 ML IV SCH (14:00)
[2018-11-28] MEDS ORDERED: SEVOFLURANE 1 UNIT/15 MINUTE INH ONE (14:58)
[2018-11-28] MEDS ORDERED: MIDAZOLAM 10 MG/2 ML VIAL ONE (14:58)
[2018-11-28] MEDS ORDERED: MIDAZOLAM 2 MG/2 ML VIAL ONE (14:58)
[2018-11-28] MEDS ORDERED: fentaNYL 100 MCG/2 ML VIAL ONE (14:58)
[2018-11-28] MEDS ORDERED: VECURONIUM 10 MG VIAL IV ONE (14:59)
[2018-11-28] MEDS ORDERED: PHENYLEPHRINE 1 MG/10 ML SYRINGE IV ONE (14:59)
[2018-11-28] MEDS ORDERED: AMINO ACIDS IV SCH (17:00)
[2018-11-28] MEDS ORDERED: [UNRECOGNIZED DRUG - OTHER] IV SCH (17:00)
[2018-11-28] MEDS ORDERED: DEXTROSE 10% 1,000 ML IV PRN (17:00)
[2018-11-28] MEDS ORDERED: MULTIVITAMIN IV SCH (17:00)
[2018-11-28] MEDS ORDERED: ELECTROLYTE IV SCH (17:00)
[2018-11-28 23:38] LABS: Hematocrit 26.5 VOL% (42.0-52.0); Hemoglobin 9.5 GM/DL (14.0-18.0)
[2018-11-29] MEDS: MEROPENEM 500 MG in SODIUM CHLORIDE 0.9% 100 ML IV SCH ×3 (03:25→18:38)
[2018-11-29 03:42] LABS: ABG Base Excess 3.3 MMOL/L (-2.5-2.5); ABG HCO3 27.4 MMOL/L (20-26); ABG Oxygen Saturation 99.1 % (95-100); ABG PCO2 36.4 MM HG (35-48); ABG PH 7.476 (7.35-7.45); ABG TCO2 24.3 MMOL/L (23-27)
[2018-11-29 03:50] LABS: Basophils % 0.5 % (0.0-0.8); Eosinophils # 0.1 10*3/uL (0.0-0.87); Eosinophils % 0.8 % (0.00-10.9); Hematocrit 26.9 VOL% (42.0-52.0); Hemoglobin 9.1 GM/DL (14.0-18.0); Immature Granulocytes % 2.7 %; Lymphocytes # 0.7 10*3/uL (1.4-4.0); Lymphocytes % 9.2 % (21.2-54.2); Mean Corpuscular HGB Conc 33.8 GM/DL (32-36); Mean Corpuscular Volume 86.2 FL (87-102); Mean Platelet Volume 12.2 FL (9.6-12.0); Neutrophils % 82.8 % (38.7-73.9); Red Blood Count 3.12 MC/CUMM (3.8-5.5); White Blood Count 7.3 T/CUMM (4-12)
[2018-11-29 03:53] LABS: Platelet Count 50 T/CUMM (130-400)
[2018-11-29 04:07] LABS: Bilirubin,Total 3.7 MG/DL (0.2-1.0); Total Protein 5.5 G/DL (6.4-8.3)
[2018-11-29 04:17] LABS: Band Neutrophils 6 % (0-10); Eosinophils 1 % (0-10); Hypochromasia 1+; Lymphocytes 9 % (20-55); Nucleated Red Blood Cells 1 (0-5); Platelet Estimate Decreased; Segmented Neutrophils 80 % (50-85); Total Cells Counted 100
[2018-11-29 04:18] LABS: Macrocytosis Slight
[2018-11-29] MEDS: INSULIN REGULAR 100 UNIT/ML SUBCUT SCH ×4 (06:14→23:40)
[2018-11-29] MEDS: fentaNYL INJ 1,250 MCG in SODIUM CHLORIDE 0.9% 225 ML IV PRN ×3 (07:27→22:09)
[2018-11-29] MEDS: SODIUM BICARB INJ 100 MEQ in DEXTROSE 5% NACL 0.22% 1,000 ML IV SCH ×2 (09:03→18:39)
[2018-11-29] MEDS: FAMOTIDINE 20 MG/2 ML VIAL IV SCH (10:05)
[2018-11-29] MEDS: POTASSIUM CHLORIDE RIDER 20 MEQ in PREMIX 1 EACH IV PRN (10:47)
[2018-11-29] MEDS ORDERED: LIDOCAINE 1% 20 ML VIAL ONE (11:42)
[2018-11-29] MEDS ORDERED: PHENYLEPHRINE 10 MG/1 ML VIAL IV ONE (12:33)
[2018-11-29] MEDS ORDERED: PHENYLEPHRINE DRIP 20 MG/250 ML PREMIX IV ONE ×3 (12:34→14:33)
[2018-11-29] MEDS ORDERED: SEVOFLURANE 1 UNIT/15 MINUTE INH ONE (14:46)
[2018-11-29] MEDS ORDERED: MIDAZOLAM 2 MG/2 ML VIAL ONE (14:46)
[2018-11-29] MEDS ORDERED: PHENYLEPHRINE 1 MG/10 ML SYRINGE IV ONE (14:46)
[2018-11-29] MEDS ORDERED: fentaNYL 100 MCG/2 ML VIAL ONE (14:46)
[2018-11-29] MEDS ORDERED: ROCURONIUM 100 MG/10 ML VIAL IV ONE (14:46)
[2018-11-29] MEDS: SODIUM HYPOCHLORITE 0.25% IRRIG 473 ML BOTTLE TOP SCH (16:48)
[2018-11-29] MEDS: AMINO ACIDS IV SCH (18:38)
[2018-11-29] MEDS: ELECTROLYTE IV SCH (18:38)
[2018-11-29] MEDS: [UNRECOGNIZED DRUG - OTHER] IV SCH (18:38)
[2018-11-29] MEDS: MULTIVITAMIN IV SCH (18:38)
[2018-11-30] MEDS ORDERED: SODIUM CHLORIDE 0.9% 500 ML IV ONE (00:34)
[2018-11-30 03:15] LABS: ABG Base Excess 2.7 MMOL/L (-2.5-2.5); ABG HCO3 26.9 MMOL/L (20-26); ABG Oxygen Saturation 99.2 % (95-100); ABG PCO2 41.2 MM HG (35-48); ABG PH 7.428 (7.35-7.45); ABG TCO2 25.7 MMOL/L (23-27)
[2018-11-30] MEDS: MEROPENEM 500 MG in SODIUM CHLORIDE 0.9% 100 ML IV SCH ×3 (03:17→18:15)
[2018-11-30 03:49] LABS: Albumin 0.9 G/DL (3.4-5.0); Calcium 6.7 MG/DL (8.5-10.1); Osmolality,Calculated 314.9 MOS/KG (273-304); Total Protein 4.9 G/DL (6.4-8.3)
[2018-11-30 03:52] LABS: Prealbumin < 3.0 MG/DL (20-40)
[2018-11-30] MEDS ORDERED: PROPOFOL 1,000 MG/100 ML BOTTLE IV SCH (04:30)
[2018-11-30] MEDS: SODIUM BICARB INJ 100 MEQ in DEXTROSE 5% NACL 0.22% 1,000 ML IV SCH (04:51)
[2018-11-30] MEDS: fentaNYL INJ 1,250 MCG in SODIUM CHLORIDE 0.9% 225 ML IV PRN (05:02)
[2018-11-30 05:46] LABS: Basophils # 0.1 10*3/uL (0.0-0.2); Basophils % 0.6 % (0.0-0.8); Eosinophils # 0.1 10*3/uL (0.0-0.87); Eosinophils % 1.4 % (0.00-10.9); Hematocrit 23.2 VOL% (42.0-52.0); Immature Granulocytes Absolute 0.39 #; Lymphocytes # 0.7 10*3/uL (1.4-4.0); Lymphocytes % 8.3 % (21.2-54.2); Mean Corpuscular HGB Conc 31.9 GM/DL (32-36); Mean Corpuscular Volume 89.9 FL (87-102); Monocytes % 1.2 % (1.7-12.7); NRBC # 0.17 10*3/uL; Neutrophils % 83.5 % (38.7-73.9); Red Blood Count 2.58 MC/CUMM (3.8-5.5); Red Cell Distribution Width 19.6 % (9.3-17.3); White Blood Count 7.8 T/CUMM (4-12)
[2018-11-30] MEDS: INSULIN REGULAR 100 UNIT/ML SUBCUT SCH ×4 (05:48→23:42)
[2018-11-30 05:49] LABS: Hemoglobin 7.4 GM/DL (14.0-18.0); Platelet Count 43 T/CUMM (130-400)
[2018-11-30 05:52] LABS: Band Neutrophils 15 % (0-10); Hypochromasia 1+; Lymphocytes 13 % (20-55); Platelet Estimate Decreased; Segmented Neutrophils 69 % (50-85); Total Cells Counted 100
[2018-11-30 05:53] LABS: Macrocytosis Slight; Ovalocytes Slight
[2018-11-30] MEDS: FAMOTIDINE 20 MG/2 ML VIAL IV SCH (10:13)
[2018-11-30] MEDS: ACETAMINOPHEN 325 MG TABLET PO PRN (10:13)
[2018-11-30] MEDS ORDERED: FUROSEMIDE 20 MG/2 ML VIAL IV ONE (12:00)
[2018-11-30] MEDS: SODIUM HYPOCHLORITE 0.25% IRRIG 473 ML BOTTLE TOP SCH (12:51)
[2018-11-30] MEDS: MULTIVITAMIN IV SCH (15:06)
[2018-11-30] MEDS: [UNRECOGNIZED DRUG - OTHER] IV SCH (15:06)
[2018-11-30] MEDS: ELECTROLYTE IV SCH (15:06)
[2018-11-30] MEDS: AMINO ACIDS IV SCH (15:06)
[2018-12-01] MEDS: MEROPENEM 500 MG in SODIUM CHLORIDE 0.9% 100 ML IV SCH ×3 (03:08→22:54)
[2018-12-01 03:36] LABS: Basophils % 0.3 % (0.0-0.8); Eosinophils # 0.1 10*3/uL (0.0-0.87); Eosinophils % 1.1 % (0.00-10.9); Hemoglobin 8.9 GM/DL (14.0-18.0); Immature Granulocytes % 4.9 %; Immature Granulocytes Absolute 0.43 #; Lymphocytes % 11.2 % (21.2-54.2); Mean Corpuscular Volume 87.9 FL (87-102); Monocytes % 2.4 % (1.7-12.7); NRBC # 0.17 10*3/uL; Neutrophils % 80.1 % (38.7-73.9); Platelet Count 49 T/CUMM (130-400); Red Blood Count 3.07 MC/CUMM (3.8-5.5); White Blood Count 8.7 T/CUMM (4-12)
[2018-12-01 03:50] LABS: ABG Base Excess 1.8 MMOL/L (-2.5-2.5); ABG HCO3 24.3 MMOL/L (20-26); ABG Oxygen Saturation 96.8 % (95-100); ABG PCO2 30.7 MM HG (35-48); ABG PH 7.517 (7.35-7.45); ABG PO2 92.2 MM HG (80-95); ABG TCO2 25.3 MMOL/L (23-27); Allen Test Positive
[2018-12-01 03:56] LABS: Albumin 0.9 G/DL (3.4-5.0); Bilirubin,Total 4.3 MG/DL (0.2-1.0); Calcium 6.8 MG/DL (8.5-10.1); Osmolality,Calculated 314.7 MOS/KG (273-304); Total Protein 5.4 G/DL (6.4-8.3)
[2018-12-01 03:59] LABS: Band Neutrophils 8 % (0-10); Eosinophils 2 % (0-10); Hypochromasia 1+; Lymphocytes 11 % (20-55); Platelet Estimate Decreased; Segmented Neutrophils 75 % (50-85); Total Cells Counted 100
[2018-12-01 04:00] LABS: Macrocytosis Slight
[2018-12-01] MEDS: INSULIN REGULAR 100 UNIT/ML SUBCUT SCH ×3 (05:53→18:36)
[2018-12-01] MEDS ORDERED: LACTATED RINGERS 1,000 ML IV ONE (07:07)
[2018-12-01] MEDS: FAMOTIDINE 20 MG/2 ML VIAL IV SCH (08:33)
[2018-12-01] MEDS: SODIUM HYPOCHLORITE 0.25% IRRIG 473 ML BOTTLE TOP SCH (10:01)
[2018-12-01] MEDS ORDERED: MIDAZOLAM 2 MG/2 ML VIAL ONE (13:28)
[2018-12-01] MEDS ORDERED: SEVOFLURANE 1 UNIT/15 MINUTE INH ONE (13:28)
[2018-12-01] MEDS ORDERED: PROPOFOL 200 MG/20 ML VIAL IV ONE (13:28)
[2018-12-01] MEDS ORDERED: fentaNYL 100 MCG/2 ML VIAL ONE (13:28)
[2018-12-01] MEDS ORDERED: KETAMINE 500 MG/10 ML VIAL ONE (13:29)
[2018-12-01] MEDS: FLUCONAZOLE 150 MG TABLET PO SCH (14:33)
[2018-12-01] MEDS: ACETAMINOPHEN 325 MG TABLET PO PRN (20:52)
[2018-12-02] MEDS: INSULIN REGULAR 100 UNIT/ML SUBCUT SCH ×4 (00:01→18:37)
[2018-12-02 04:19] LABS: Basophils # 0.1 10*3/uL (0.0-0.2); Basophils % 0.6 % (0.0-0.8); Eosinophils # 0.1 10*3/uL (0.0-0.87); Eosinophils % 0.8 % (0.00-10.9); Hematocrit 27.2 VOL% (42.0-52.0); Hemoglobin 8.9 GM/DL (14.0-18.0); Immature Granulocytes % 3.7 %; Immature Granulocytes Absolute 0.31 #; Lymphocytes % 11.5 % (21.2-54.2); Mean Corpuscular HGB Conc 32.7 GM/DL (32-36); Mean Corpuscular Volume 87.2 FL (87-102); Monocytes % 3.2 % (1.7-12.7); NRBC # 0.12 10*3/uL; Neutrophils % 80.2 % (38.7-73.9); Platelet Count 66 T/CUMM (130-400); Red Blood Count 3.12 MC/CUMM (3.8-5.5); Red Cell Distribution Width 18.2 % (9.3-17.3); White Blood Count 8.4 T/CUMM (4-12)
[2018-12-02 04:37] LABS: Albumin 0.9 G/DL (3.4-5.0); Bilirubin,Total 4.4 MG/DL (0.2-1.0); Osmolality,Calculated 325.2 MOS/KG (273-304); Total Protein 5.9 G/DL (6.4-8.3)
[2018-12-02 05:29] LABS: Anisocytosis 1+; Band Neutrophils 5 % (0-10); Hypochromasia Slight; Lymphocytes 15 % (20-55); Metamyelocytes 2 %; Microcytosis 1+; Nucleated Red Blood Cells 4 (0-5); Segmented Neutrophils 74 % (50-85); Target Cells 1+; Total Cells Counted 100
[2018-12-02 05:30] LABS: Platelet Estimate Decreased; Polychromasia Slight
[2018-12-02] MEDS: MEROPENEM 500 MG in SODIUM CHLORIDE 0.9% 100 ML IV SCH ×3 (06:15→22:05)
[2018-12-02] MEDS: FLUCONAZOLE 150 MG TABLET PO SCH (08:27)
[2018-12-02] MEDS: ACETAMINOPHEN 325 MG TABLET PO PRN (08:28)
[2018-12-02] MEDS: FAMOTIDINE 20 MG/2 ML VIAL IV SCH (08:28)
[2018-12-02] MEDS: POTASSIUM CHLORIDE RIDER 10 MEQ in PREMIX 1 EACH IV PRN ×3 (08:55→16:09)
[2018-12-02] MEDS: SODIUM HYPOCHLORITE 0.25% IRRIG 473 ML BOTTLE TOP SCH (10:42)
[2018-12-02] MEDS ORDERED: SODIUM CHLORIDE 0.45% 1,000 ML IV ONE (11:24)
[2018-12-03] MEDS: INSULIN REGULAR 100 UNIT/ML SUBCUT SCH ×4 (01:02→18:26)
[2018-12-03] MEDS: ACETAMINOPHEN 325 MG TABLET PO PRN ×2 (01:56→14:27)
[2018-12-03 05:16] LABS: Basophils # 0.1 10*3/uL (0.0-0.2); Basophils % 0.9 % (0.0-0.8); Eosinophils # 0.1 10*3/uL (0.0-0.87); Hematocrit 28.5 VOL% (42.0-52.0); Hemoglobin 9.2 GM/DL (14.0-18.0); Immature Granulocytes % 2.8 %; Immature Granulocytes Absolute 0.28 #; Lymphocytes % 9.7 % (21.2-54.2); Mean Corpuscular HGB Conc 32.3 GM/DL (32-36); Mean Corpuscular Volume 88.5 FL (87-102); Monocytes % 2.5 % (1.7-12.7); NRBC # 0.11 10*3/uL; Neutrophils % 83.1 % (38.7-73.9); Platelet Count 74 T/CUMM (130-400); Red Blood Count 3.22 MC/CUMM (3.8-5.5); Red Cell Distribution Width 17.9 % (9.3-17.3); White Blood Count 10.1 T/CUMM (4-12)
[2018-12-03 05:30] LABS: Bilirubin,Total 3.9 MG/DL (0.2-1.0); Calcium 7.3 MG/DL (8.5-10.1); Osmolality,Calculated 319.4 MOS/KG (273-304)
[2018-12-03 05:38] LABS: Band Neutrophils 20 % (0-10); Eosinophils 3 % (0-10); Lymphocytes 10 % (20-55); Segmented Neutrophils 66 % (50-85); Total Cells Counted 100
[2018-12-03 05:39] LABS: Acanthocytes Few; Anisocytosis 1+; Hypochromasia 1+; Platelet Estimate Decreased; Target Cells Few
[2018-12-03] MEDS: POTASSIUM CHLORIDE RIDER 20 MEQ in PREMIX 1 EACH IV PRN (05:54)
[2018-12-03] MEDS: MEROPENEM 500 MG in SODIUM CHLORIDE 0.9% 100 ML IV SCH ×3 (05:54→21:34)
[2018-12-03] MEDS ORDERED: SEVOFLURANE 1 UNIT/15 MINUTE INH ONE (09:40)
[2018-12-03] MEDS ORDERED: PHENYLEPHRINE 10 MG/1 ML VIAL IV ONE (09:40)
[2018-12-03] MEDS ORDERED: MIDAZOLAM 2 MG/2 ML VIAL ONE (09:40)
[2018-12-03] MEDS ORDERED: PROPOFOL 200 MG/20 ML VIAL IV ONE (09:40)
[2018-12-03] MEDS ORDERED: ROCURONIUM 100 MG/10 ML VIAL IV ONE (09:40)
[2018-12-03] MEDS ORDERED: ePHEDrine 50 MG/ML AMP ONE (09:40)
[2018-12-03] MEDS ORDERED: fentaNYL 100 MCG/2 ML VIAL ONE ×2 (09:40→10:53)
[2018-12-03] MEDS ORDERED: MIDAZOLAM 10 MG/2 ML VIAL ONE (09:40)
[2018-12-03] MEDS: SODIUM HYPOCHLORITE 0.25% IRRIG 473 ML BOTTLE TOP SCH (10:08)
[2018-12-03] MEDS: FLUCONAZOLE 150 MG TABLET PO SCH (10:08)
[2018-12-03] MEDS: FAMOTIDINE 20 MG/2 ML VIAL IV SCH (10:08)
[2018-12-03 10:10] LABS: ABG Base Excess -4.7 MMOL/L (-2.5-2.5); ABG HCO3 20.5 MMOL/L (20-26); ABG Oxygen Saturation 99.1 % (95-100); ABG PCO2 48.3 MM HG (35-48); ABG TCO2 20.8 MMOL/L (23-27); Allen Test Positive; Pt O2 Delivery Device Ventilator
[2018-12-03] MEDS: HYDROmorphone 2 MG/1 ML VIAL IV PRN ×2 (11:52→13:57)
[2018-12-03] MEDS: PROPOFOL 1,000 MG/100 ML BOTTLE IV SCH (13:18)
[2018-12-03] MEDS ORDERED: SODIUM CHLORIDE 0.45% 500 ML IV ONE (14:09)
[2018-12-03] MEDS ORDERED: ALBUMIN 25% 12.5 GM in PREMIX 1 EACH IV ONE (14:44)
[2018-12-03] MEDS ORDERED: ALBUMIN 5% 12.5 GM/250 ML VIAL IV ONE (14:45)
[2018-12-03] MEDS ORDERED: ALBUMIN 5% 12.5 GM in PREMIX 1 EACH IV ONE (14:46)
[2018-12-03] MEDS: fentaNYL INJ 1,250 MCG in SODIUM CHLORIDE 0.9% 225 ML IV PRN (14:52)
[2018-12-03] MEDS ORDERED: SODIUM CHLORIDE 0.45% 1,000 ML IV ONE ×2 (15:00→15:11)
[2018-12-03] MEDS: NOREPINEPHRINE 8 MG in SODIUM CHLORIDE 0.9% 242 ML IV PRN (16:18)
[2018-12-03 17:10] LABS: ABG Base Excess -3.4 MMOL/L (-2.5-2.5); ABG HCO3 21.6 MMOL/L (20-26); ABG Oxygen Saturation 98.8 % (95-100); ABG PCO2 30.5 MM HG (35-48); ABG PH 7.427 (7.35-7.45); ABG TCO2 18.2 MMOL/L (23-27)
[2018-12-03 17:12] LABS: Allen Test Positive; Pt O2 Delivery Device Ventilator
[2018-12-03 17:58] LABS: Basophils % 0.4 % (0.0-0.8); Eosinophils % 0.2 % (0.00-10.9); Hematocrit 30.6 VOL% (42.0-52.0); Hemoglobin 9.9 GM/DL (14.0-18.0); Immature Granulocytes Absolute 0.22 #; Lymphocytes # 0.9 10*3/uL (1.4-4.0); Mean Corpuscular HGB Conc 32.4 GM/DL (32-36); Mean Platelet Volume 13.1 FL (9.6-12.0); Monocytes % 2.5 % (1.7-12.7); Neutrophils % 86.9 % (38.7-73.9); Platelet Count 73 T/CUMM (130-400); Red Cell Distribution Width 17.5 % (9.3-17.3); White Blood Count 10.9 T/CUMM (4-12)
[2018-12-03 18:22] LABS: Band Neutrophils 25 % (0-10); Eosinophils 1 % (0-10); Lymphocytes 14 % (20-55); Metamyelocytes 2 %; Myelocytes 1 %; Segmented Neutrophils 53 % (50-85); Total Cells Counted 100
[2018-12-03 18:23] LABS: Giant Platelets Few
[2018-12-03 18:24] LABS: Target Cells Few
[2018-12-03 18:25] LABS: Polychromasia Few
[2018-12-03 18:26] LABS: Hypochromasia 1+; Macrocytosis 1+; Platelet Estimate Decreased
[2018-12-04] MEDS: INSULIN REGULAR 100 UNIT/ML SUBCUT SCH ×4 (00:37→17:44)
[2018-12-04] MEDS: fentaNYL INJ 1,250 MCG in SODIUM CHLORIDE 0.9% 225 ML IV PRN (04:19)
[2018-12-04 04:36] LABS: ABG Base Excess -1.3 MMOL/L (-2.5-2.5); ABG HCO3 23.4 MMOL/L (20-26); ABG PCO2 32.1 MM HG (35-48); ABG PH 7.442 (7.35-7.45); ABG TCO2 18.6 MMOL/L (23-27); Allen Test Positive; Pt O2 Delivery Device Ventilator
[2018-12-04 05:40] LABS: Basophils % 0.2 % (0.0-0.8); Eosinophils # 0.1 10*3/uL (0.0-0.87); Eosinophils % 1.2 % (0.00-10.9); Hematocrit 29.4 VOL% (42.0-52.0); Hemoglobin 9.7 GM/DL (14.0-18.0); Immature Granulocytes Absolute 0.19 #; Lymphocytes # 0.9 10*3/uL (1.4-4.0); Lymphocytes % 10.1 % (21.2-54.2); Mean Corpuscular Volume 88.6 FL (87-102); Monocytes % 2.3 % (1.7-12.7); Neutrophils % 84.2 % (38.7-73.9); Platelet Count 87 T/CUMM (130-400); Red Blood Count 3.32 MC/CUMM (3.8-5.5); Red Cell Distribution Width 17.6 % (9.3-17.3); White Blood Count 9.3 T/CUMM (4-12)
[2018-12-04 06:19] LABS: Albumin 1.1 G/DL (3.4-5.0); Bilirubin,Total 3.4 MG/DL (0.2-1.0); Calcium 7.2 MG/DL (8.5-10.1); Osmolality,Calculated 311.9 MOS/KG (273-304); Total Protein 6.1 G/DL (6.4-8.3)
[2018-12-04] MEDS: MEROPENEM 500 MG in SODIUM CHLORIDE 0.9% 100 ML IV SCH ×3 (06:20→22:22)
[2018-12-04 06:54] LABS: Prealbumin 8.4 MG/DL (20-40)
[2018-12-04] MEDS ORDERED: SEVOFLURANE 1 UNIT/15 MINUTE INH ONE (09:22)
[2018-12-04] MEDS ORDERED: fentaNYL 100 MCG/2 ML VIAL ONE ×2 (09:22)
[2018-12-04] MEDS ORDERED: SODIUM CHLORIDE 0.9% 100 ML IV ONE (09:23)
[2018-12-04] MEDS ORDERED: ETOMIDATE 40 MG/20 ML VIAL IV ONE (09:23)
[2018-12-04] MEDS ORDERED: PHENYLEPHRINE 10 MG/1 ML VIAL IV ONE (09:23)
[2018-12-04] MEDS ORDERED: SODIUM CHLORIDE 0.9% 250 ML IV ONE (09:23)
[2018-12-04] MEDS ORDERED: PHENOL 1.4% THROAT SPRAY 177 ML BOTTLE PO PRN (09:45)
[2018-12-04] MEDS: SODIUM HYPOCHLORITE 0.25% IRRIG 473 ML BOTTLE TOP SCH (09:53)
[2018-12-04 10:05] LABS: Pt O2 Delivery Device Simple Mask
[2018-12-04] MEDS: PROPOFOL 1,000 MG/100 ML BOTTLE IV SCH (10:06)
[2018-12-04 10:08] LABS: ABG Base Excess -4.1 MMOL/L (-2.5-2.5); ABG HCO3 19.1 MMOL/L (20-26); ABG Oxygen Saturation 98.7 % (95-100); ABG PCO2 28.5 MM HG (35-48); ABG PH 7.444 (7.35-7.45); ABG PO2 197.6 MM HG (80-95)
[2018-12-04 10:17] LABS: Band Neutrophils 12 % (0-10); Eosinophils 1 % (0-10); Hypochromasia Slight; Lymphocytes 7 % (20-55); Metamyelocytes 3 %; Microcytosis Slight; Polychromasia Slight; Segmented Neutrophils 76 % (50-85); Total Cells Counted 100
[2018-12-04 10:18] LABS: Platelet Estimate Decreased; Tear Drop Cells Slight
[2018-12-04] MEDS: FAMOTIDINE 20 MG/2 ML VIAL IV SCH (10:29)
[2018-12-04] MEDS: FLUCONAZOLE 150 MG TABLET PO SCH (10:37)
[2018-12-04] MEDS ORDERED: SODIUM CHLORIDE 0.9% 1,000 ML IV ONE ×2 (11:53→14:34)
[2018-12-04] MEDS: ACETAMINOPHEN 325 MG TABLET PO PRN ×2 (16:00→22:41)
[2018-12-04] MEDS: NOREPINEPHRINE 8 MG in SODIUM CHLORIDE 0.9% 242 ML IV PRN (16:44)
[2018-12-04 18:15] LABS: Basophils % 0.4 % (0.0-0.8); Eosinophils # 0.2 10*3/uL (0.0-0.87); Eosinophils % 1.6 % (0.00-10.9); Hematocrit 24.4 VOL% (42.0-52.0); Hemoglobin 7.8 GM/DL (14.0-18.0); Immature Granulocytes % 2.3 %; Immature Granulocytes Absolute 0.24 #; Lymphocytes # 1.2 10*3/uL (1.4-4.0); Lymphocytes % 11.5 % (21.2-54.2); Mean Platelet Volume 13.7 FL (9.6-12.0); Monocytes % 2.5 % (1.7-12.7); NRBC # 0.14 10*3/uL; Neutrophils % 81.7 % (38.7-73.9); Platelet Count 89 T/CUMM (130-400); Red Blood Count 2.68 MC/CUMM (3.8-5.5); Red Cell Distribution Width 17.8 % (9.3-17.3); White Blood Count 10.4 T/CUMM (4-12)
[2018-12-04 18:41] LABS: Band Neutrophils 21 % (0-10); Eosinophils 2 % (0-10); Lymphocytes 10 % (20-55); Metamyelocytes 3 %; Myelocytes 2 %; Nucleated Red Blood Cells 1 (0-5); Platelet Estimate Decreased; Segmented Neutrophils 60 % (50-85); Total Cells Counted 100
[2018-12-04 18:42] LABS: Macrocytosis Slight; Toxic Granulation 1+
[2018-12-04 18:43] LABS: Acanthocytes 1+; Polychromasia Slight
[2018-12-04 18:54] LABS: ABG Base Excess -4.7 MMOL/L (-2.5-2.5); ABG HCO3 20.5 MMOL/L (20-26); ABG Oxygen Saturation 99.1 % (95-100); ABG PCO2 25.7 MM HG (35-48); ABG PH 7.459 (7.35-7.45)
[2018-12-04] MEDS ORDERED: SODIUM CHLORIDE 0.9% 1,000 ML IV PRN (19:01)
[2018-12-04 19:41] LABS: Alanine Aminotransferase 34 U/L (16-61); Albumin 0.8 G/DL (3.4-5.0); Alkaline Phosphatase 290 U/L (45-117); Aspartate Amino Transferase 74 U/L (0-37); Blood Urea Nitrogen 49 MG/DL (7-18); Calcium 6.4 MG/DL (8.5-10.1); Glucose 133 MG/DL (74-106)
[2018-12-04] MEDS: HYDROmorphone 2 MG/1 ML VIAL IV PRN (19:43)
[2018-12-05] MEDS: NOREPINEPHRINE 8 MG in SODIUM CHLORIDE 0.9% 242 ML IV PRN (00:49)
[2018-12-05] MEDS: INSULIN REGULAR 100 UNIT/ML SUBCUT SCH ×4 (01:20→18:19)
[2018-12-05 01:23] LABS: Albumin 0.9 G/DL (3.4-5.0); Calcium 6.9 MG/DL (8.5-10.1); Total Protein 5.5 G/DL (6.4-8.3)
[2018-12-05] MEDS: HYDROmorphone 2 MG/1 ML VIAL IV PRN ×2 (02:52→16:55)
[2018-12-05] MEDS: MEROPENEM 500 MG in SODIUM CHLORIDE 0.9% 100 ML IV SCH ×3 (06:50→22:14)
[2018-12-05 08:29] LABS: Basophils % 0.3 % (0.0-0.8); Eosinophils # 0.1 10*3/uL (0.0-0.87); Eosinophils % 0.5 % (0.00-10.9); Hemoglobin 9.3 GM/DL (14.0-18.0); Immature Granulocytes % 1.4 %; Immature Granulocytes Absolute 0.17 #; Lymphocytes # 0.7 10*3/uL (1.4-4.0); Lymphocytes % 5.7 % (21.2-54.2); Mean Corpuscular HGB Conc 33.2 GM/DL (32-36); Mean Corpuscular Volume 89.2 FL (87-102); Mean Platelet Volume 12.7 FL (9.6-12.0); Monocytes % 1.8 % (1.7-12.7); NRBC # 0.06 10*3/uL; Neutrophils % 90.3 % (38.7-73.9); Platelet Count 79 T/CUMM (130-400); Red Blood Count 3.14 MC/CUMM (3.8-5.5); Red Cell Distribution Width 17.5 % (9.3-17.3); White Blood Count 12.6 T/CUMM (4-12)
[2018-12-05 08:50] LABS: Band Neutrophils 16 % (0-10); Eosinophils 2 % (0-10); Lymphocytes 3 % (20-55); Myelocytes 1 %; Segmented Neutrophils 76 % (50-85); Total Cells Counted 100
[2018-12-05 08:51] LABS: Hypochromasia 1+; Macrocytosis Slight; Platelet Estimate Decreased
[2018-12-05] MEDS ORDERED: LORazepam 0.5 MG TABLET PO ONE ×2 (10:23→12:50)
[2018-12-05] MEDS ORDERED: LACTATED RINGERS 1,000 ML IV ONE (10:23)
[2018-12-05] MEDS: SODIUM HYPOCHLORITE 0.25% IRRIG 473 ML BOTTLE TOP SCH (10:39)
[2018-12-05] MEDS: FLUCONAZOLE 150 MG TABLET PO SCH (10:39)
[2018-12-05] MEDS: FAMOTIDINE 20 MG/2 ML VIAL IV SCH (10:39)
[2018-12-05] MEDS: PROPOFOL 1,000 MG/100 ML BOTTLE IV SCH (10:40)
[2018-12-05] MEDS ORDERED: DEXTROSE 5% 500 ML IV SCH (16:00)
[2018-12-05] MEDS: DEXTROSE 5% 1,000 ML IV SCH ×2 (17:07→23:31)
[2018-12-05] MEDS: ACETAMINOPHEN 325 MG TABLET PO PRN (18:19)
[2018-12-06] MEDS: INSULIN REGULAR 100 UNIT/ML SUBCUT SCH ×3 (01:55→13:28)
[2018-12-06 04:58] LABS: Basophils # 0.1 10*3/uL (0.0-0.2); Basophils % 0.8 % (0.0-0.8); Eosinophils # 0.2 10*3/uL (0.0-0.87); Eosinophils % 1.5 % (0.00-10.9); Hematocrit 25.4 VOL% (42.0-52.0); Hemoglobin 8.3 GM/DL (14.0-18.0); Immature Granulocytes Absolute 0.24 #; Lymphocytes # 0.9 10*3/uL (1.4-4.0); Lymphocytes % 7.4 % (21.2-54.2); Mean Corpuscular HGB Conc 32.7 GM/DL (32-36); Mean Corpuscular Volume 89.1 FL (87-102); Mean Platelet Volume 13.8 FL (9.6-12.0); Monocytes % 1.7 % (1.7-12.7); NRBC # 0.07 10*3/uL; Neutrophils % 86.6 % (38.7-73.9); Platelet Count 67 T/CUMM (130-400); Red Blood Count 2.85 MC/CUMM (3.8-5.5); Red Cell Distribution Width 17.6 % (9.3-17.3); White Blood Count 11.8 T/CUMM (4-12)
[2018-12-06 05:25] LABS: Band Neutrophils 7 % (0-10); Eosinophils 1 % (0-10); Lymphocytes 10 % (20-55); Metamyelocytes 3 %; Segmented Neutrophils 78 % (50-85); Total Cells Counted 100
[2018-12-06 05:26] LABS: Anisocytosis 1+; Hypochromasia 1+; Microcytosis 1+
[2018-12-06 05:40] LABS: Albumin 0.7 G/DL (3.4-5.0); Bilirubin,Total 2.2 MG/DL (0.2-1.0); Total Protein 5.3 G/DL (6.4-8.3)
[2018-12-06] MEDS: DEXTROSE 5% 1,000 ML IV SCH ×2 (06:31→12:40)
[2018-12-06] MEDS: MEROPENEM 500 MG in SODIUM CHLORIDE 0.9% 100 ML IV SCH ×2 (07:04→14:40)
[2018-12-06] MEDS: POTASSIUM CHLORIDE RIDER 20 MEQ in PREMIX 1 EACH IV PRN ×2 (07:05→08:27)
[2018-12-06] MEDS: SODIUM HYPOCHLORITE 0.25% IRRIG 473 ML BOTTLE TOP SCH (08:27)
[2018-12-06] MEDS: FAMOTIDINE 20 MG/2 ML VIAL IV SCH (08:27)
[2018-12-06] MEDS ORDERED: LORazepam 0.5 MG TABLET PO PRN (10:56)
[2018-12-06] MEDS: PROPOFOL 1,000 MG/100 ML BOTTLE IV SCH (10:59)
[2018-12-06] MEDS ORDERED: PROPOFOL 200 MG/20 ML VIAL IV ONE (11:42)
[2018-12-06] MEDS ORDERED: fentaNYL 100 MCG/2 ML VIAL ONE (11:42)
[2018-12-06] MEDS ORDERED: PHENYLEPHRINE DRIP 20 MG/250 ML PREMIX IV ONE (11:42)
[2018-12-06] MEDS ORDERED: MIDAZOLAM 2 MG/2 ML VIAL ONE (11:42)
[2018-12-06] MEDS ORDERED: KETAMINE 500 MG/10 ML VIAL ONE (11:43)
[2018-12-06 12:23] VITALS: BP 113/68
[2018-12-06] MEDS ORDERED: SODIUM CHLORIDE 0.9% 1,000 ML IV PRN (12:48)
[2018-12-06] MEDS: POTASSIUM CHLORIDE RIDER 10 MEQ in PREMIX 1 EACH IV PRN (13:05)
[2018-12-06] MEDS: DEXTROSE 10% 250 ML BAG IV PRN (13:31)
[2018-12-07] MEDS ORDERED: LORazepam 0.5 MG TABLET PO SCH (09:00)
== END 2018-12-06 17:37 | disposition other institution (70) | DRG 853 ==
LOC: N.ED 07:45 → N.EDINP 09:07 → N.ICU 10:20
PROVIDERS: ADMIT Surgery; ATTEND Surgery

== ENCOUNTER 2019-09-09 11:02 | Inpatient (IN) ==
[2019-09-09] MEDS ORDERED: cefTRIAXone 1,000 MG in SODIUM CHLORIDE 0.9% 100 ML IV STA (11:33)
[2019-09-09] MEDS ORDERED: SODIUM CHLORIDE 0.9% 1,000 ML IV STA (11:33)
[2019-09-09 13:03] LABS: Basophils % 0.2 % (0.0-0.8); Eosinophils % 0.1 % (0.00-10.9); Hematocrit 44.6 VOL% (42.0-52.0); Hemoglobin 14.1 GM/DL (14.0-18.0); Immature Granulocytes Absolute 0.14 #; Lymphocytes # 0.5 10*3/uL (1.4-4.0); Lymphocytes % 3.1 % (21.2-54.2); Mean Corpuscular HGB Conc 31.6 GM/DL (32-36); Mean Platelet Volume 9.5 FL (9.6-12.0); Neutrophils % 92.6 % (38.7-73.9); Platelet Count 232 T/CUMM (130-400); Red Blood Count 5.72 MC/CUMM (3.8-5.5); Red Cell Distribution Width 16.4 % (9.3-17.3); White Blood Count 14.7 T/CUMM (4-12)
[2019-09-09 13:04] LABS: INR 1.1; PT Patient Result 11.2 SECS (9.8-11.9)
[2019-09-09 13:10] LABS: Albumin 3.3 G/DL (3.4-5.0); Bilirubin,Total 0.7 MG/DL (0.2-1.0); Calcium 8.5 MG/DL (8.5-10.1); Osmolality,Calculated 268.1 MOS/KG (273-304); Total Protein 8.1 G/DL (6.4-8.3)
[2019-09-09 13:35] LABS: Apearance,Urine CLEAR (Clear); Bacteria,Urine Occasional /HPF (Few); Bilirubin,Urine Negative (Negative); Blood, Urine Small mg/dL (Negative); Glucose,Urine (UA) Negative (Negative); Hyaline Casts,Urine 4 /LPF (0-3); Ketones,Urine Negative (Negative); Mucus,Urine Occasional /LPF (Occasional); Nitrite,Urine Negative (Negative); Protein,Urine 30 MG/DL; RBC,Urine 5 /HPF (0-4); Squamous Epithelial Cell,Urine Occasional /HPF (0-10); Urine Color Yellow (Yellow); Urine Specific Gravity 1.015 (1.001-1.035); Urine Urobilinogen < 2.0 EU/DL (0.2-1.0); WBC,Urine 3 /HPF (0-6)
[2019-09-09 15:09] LABS: Sedimentation Rate-Westergren 60 MM/HR (0-20)
[2019-09-09 16:21] LABS: Band Neutrophils 3 % (0-10); Lymphocytes 5 % (20-55); Segmented Neutrophils 88 % (50-85); Total Cells Counted 100
[2019-09-09 16:22] LABS: Microcytosis Slight; Platelet Estimate Adequate
[2019-09-09] MEDS ORDERED: GLUCAGON 1 MG VIAL IM PRN (17:51)
[2019-09-09] MEDS ORDERED: DEXTROSE 10% 250 ML BAG IV PRN (17:51)
[2019-09-09] MEDS: ACETAMINOPHEN 325 MG TABLET PO PRN (18:01)
[2019-09-10] MEDS: ACETAMINOPHEN 325 MG TABLET PO PRN ×2 (00:34→13:09)
[2019-09-10 06:35] LABS: Basophils % 0.4 % (0.0-0.8); Eosinophils % 0.3 % (0.00-10.9); Hematocrit 42.3 VOL% (42.0-52.0); Hemoglobin 13.3 GM/DL (14.0-18.0); Immature Granulocytes % 0.7 %; Immature Granulocytes Absolute 0.08 #; Lymphocytes % 8.5 % (21.2-54.2); Mean Corpuscular HGB Conc 31.4 GM/DL (32-36); Mean Corpuscular Volume 78.3 FL (87-102); Mean Platelet Volume 9.2 FL (9.6-12.0); Monocytes % 5.7 % (1.7-12.7); Neutrophils % 84.4 % (38.7-73.9); Platelet Count 195 T/CUMM (130-400); Red Cell Distribution Width 16.6 % (9.3-17.3); White Blood Count 11.2 T/CUMM (4-12)
[2019-09-10 07:01] LABS: Calcium 8.8 MG/DL (8.5-10.1)
[2019-09-10 07:05] LABS: Ferritin 1003.1 ng/ml (26-388)
[2019-09-10] MEDS: CEFEPIME 1,000 MG in SODIUM CHLORIDE 0.9% 100 ML IV SCH ×2 (14:46→20:52)
[2019-09-10] MEDS: CHOLESTYRAMINE 4 GM PACK PO SCH ×2 (14:46→20:53)
[2019-09-10] MEDS: VANCOMYCIN 50 MG/ML 60 ML/BOTTLE PO SCH ×2 (17:12→22:42)
[2019-09-11] MEDS: ACETAMINOPHEN 325 MG TABLET PO PRN (01:48)
[2019-09-11] MEDS: CEFEPIME 1,000 MG in SODIUM CHLORIDE 0.9% 100 ML IV SCH ×4 (02:42→20:00)
[2019-09-11] MEDS: VANCOMYCIN 50 MG/ML 60 ML/BOTTLE PO SCH ×4 (05:40→19:59)
[2019-09-11 05:44] LABS: Basophils % 0.4 % (0.0-0.8); Eosinophils # 0.2 10*3/uL (0.0-0.87); Eosinophils % 2.4 % (0.00-10.9); Hematocrit 41.9 VOL% (42.0-52.0); Hemoglobin 13.1 GM/DL (14.0-18.0); Immature Granulocytes % 0.7 %; Immature Granulocytes Absolute 0.06 #; Lymphocytes # 1.6 10*3/uL (1.4-4.0); Lymphocytes % 18.5 % (21.2-54.2); Mean Corpuscular HGB Conc 31.3 GM/DL (32-36); Mean Corpuscular Volume 78.3 FL (87-102); Mean Platelet Volume 9.6 FL (9.6-12.0); Monocytes % 9.4 % (1.7-12.7); Neutrophils % 68.6 % (38.7-73.9); Platelet Count 201 T/CUMM (130-400); Red Blood Count 5.35 MC/CUMM (3.8-5.5); Red Cell Distribution Width 16.4 % (9.3-17.3); White Blood Count 8.4 T/CUMM (4-12)
[2019-09-11 06:18] LABS: Calcium 9.2 MG/DL (8.5-10.1); Osmolality,Calculated 273.7 MOS/KG (273-304)
[2019-09-11] MEDS: CHOLESTYRAMINE 4 GM PACK PO SCH ×2 (09:43→20:01)
[2019-09-12] MEDS: CEFEPIME 1,000 MG in SODIUM CHLORIDE 0.9% 100 ML IV SCH ×4 (03:27→21:46)
[2019-09-12] MEDS: VANCOMYCIN 50 MG/ML 60 ML/BOTTLE PO SCH ×4 (03:27→21:45)
[2019-09-12 05:59] LABS: Basophils % 0.4 % (0.0-0.8); Eosinophils # 0.2 10*3/uL (0.0-0.87); Eosinophils % 2.4 % (0.00-10.9); Hematocrit 43.8 VOL% (42.0-52.0); Immature Granulocytes % 0.8 %; Immature Granulocytes Absolute 0.06 #; Lymphocytes # 1.6 10*3/uL (1.4-4.0); Lymphocytes % 21.6 % (21.2-54.2); Mean Corpuscular Volume 76.3 FL (87-102); Mean Platelet Volume 9.6 FL (9.6-12.0); Monocytes % 8.1 % (1.7-12.7); Neutrophils % 66.7 % (38.7-73.9); Platelet Count 231 T/CUMM (130-400); Red Blood Count 5.74 MC/CUMM (3.8-5.5); Red Cell Distribution Width 16.5 % (9.3-17.3); White Blood Count 7.2 T/CUMM (4-12)
[2019-09-12 06:24] LABS: Calcium 9.4 MG/DL (8.5-10.1)
[2019-09-12 06:28] LABS: Ferritin 976.8 ng/ml (26-388)
[2019-09-12] MEDS: CHOLESTYRAMINE 4 GM PACK PO SCH ×2 (09:24→21:45)
[2019-09-13] MEDS: VANCOMYCIN 50 MG/ML 60 ML/BOTTLE PO SCH ×4 (03:58→20:13)
[2019-09-13 04:59] LABS: Basophils % 0.7 % (0.0-0.8); Eosinophils # 0.2 10*3/uL (0.0-0.87); Eosinophils % 2.6 % (0.00-10.9); Hematocrit 41.7 VOL% (42.0-52.0); Hemoglobin 13.3 GM/DL (14.0-18.0); Immature Granulocytes % 1.7 %; Lymphocytes # 1.6 10*3/uL (1.4-4.0); Lymphocytes % 28.1 % (21.2-54.2); Mean Corpuscular HGB Conc 31.9 GM/DL (32-36); Mean Platelet Volume 9.9 FL (9.6-12.0); Monocytes % 8.2 % (1.7-12.7); Neutrophils % 58.7 % (38.7-73.9); Platelet Count 235 T/CUMM (130-400); Red Blood Count 5.49 MC/CUMM (3.8-5.5); Red Cell Distribution Width 16.3 % (9.3-17.3); White Blood Count 5.7 T/CUMM (4-12)
[2019-09-13 05:48] LABS: Calcium 8.9 MG/DL (8.5-10.1); Osmolality,Calculated 277.5 MOS/KG (273-304)
[2019-09-13 06:14] LABS: Ferritin 747.9 ng/ml (26-388)
[2019-09-13] MEDS: CEFEPIME 1,000 MG in SODIUM CHLORIDE 0.9% 100 ML IV SCH ×5 (06:56→20:14)
[2019-09-13] MEDS: CHOLESTYRAMINE 4 GM PACK PO SCH (10:29)
[2019-09-14] MEDS: CEFEPIME 1,000 MG in SODIUM CHLORIDE 0.9% 100 ML IV SCH ×4 (02:16→20:05)
[2019-09-14] MEDS: VANCOMYCIN 50 MG/ML 60 ML/BOTTLE PO SCH ×4 (02:18→20:31)
[2019-09-14 05:19] LABS: Basophils # 0.1 10*3/uL (0.0-0.2); Basophils % 1.2 % (0.0-0.8); Eosinophils # 0.2 10*3/uL (0.0-0.87); Eosinophils % 2.8 % (0.00-10.9); Hematocrit 41.4 VOL% (42.0-52.0); Hemoglobin 13.3 GM/DL (14.0-18.0); Immature Granulocytes % 3.4 %; Immature Granulocytes Absolute 0.23 #; Lymphocytes % 30.1 % (21.2-54.2); Mean Corpuscular HGB Conc 32.1 GM/DL (32-36); Mean Corpuscular Volume 76.1 FL (87-102); Mean Platelet Volume 9.6 FL (9.6-12.0); Monocytes % 6.4 % (1.7-12.7); Neutrophils % 56.1 % (38.7-73.9); Platelet Count 247 T/CUMM (130-400); Red Blood Count 5.44 MC/CUMM (3.8-5.5); Red Cell Distribution Width 16.2 % (9.3-17.3); White Blood Count 6.8 T/CUMM (4-12)
[2019-09-14 05:33] LABS: Calcium 8.9 MG/DL (8.5-10.1); Osmolality,Calculated 278.5 MOS/KG (273-304)
[2019-09-14] MEDS: CHOLESTYRAMINE 4 GM PACK PO SCH (08:43)
[2019-09-15] MEDS: CEFEPIME 1,000 MG in SODIUM CHLORIDE 0.9% 100 ML IV SCH ×4 (03:58→20:16)
[2019-09-15] MEDS: VANCOMYCIN 50 MG/ML 60 ML/BOTTLE PO SCH ×4 (03:58→20:46)
[2019-09-15 05:41] LABS: Basophils # 0.1 10*3/uL (0.0-0.2); Basophils % 1.3 % (0.0-0.8); Eosinophils # 0.2 10*3/uL (0.0-0.87); Eosinophils % 2.5 % (0.00-10.9); Hematocrit 42.3 VOL% (42.0-52.0); Hemoglobin 13.3 GM/DL (14.0-18.0); Immature Granulocytes % 3.6 %; Immature Granulocytes Absolute 0.26 #; Lymphocytes # 1.8 10*3/uL (1.4-4.0); Mean Corpuscular HGB Conc 31.4 GM/DL (32-36); Mean Corpuscular Volume 76.6 FL (87-102); Mean Platelet Volume 9.7 FL (9.6-12.0); Monocytes % 5.7 % (1.7-12.7); Neutrophils % 61.9 % (38.7-73.9); Platelet Count 276 T/CUMM (130-400); Red Blood Count 5.52 MC/CUMM (3.8-5.5); Red Cell Distribution Width 16.1 % (9.3-17.3); White Blood Count 7.2 T/CUMM (4-12)
[2019-09-15 06:07] LABS: Calcium 8.8 MG/DL (8.5-10.1); Osmolality,Calculated 275.7 MOS/KG (273-304)
[2019-09-15] MEDS: CHOLESTYRAMINE 4 GM PACK PO SCH (08:10)
[2019-09-16] MEDS: CEFEPIME 1,000 MG in SODIUM CHLORIDE 0.9% 100 ML IV SCH ×4 (02:38→20:18)
[2019-09-16] MEDS: VANCOMYCIN 50 MG/ML 60 ML/BOTTLE PO SCH ×4 (02:39→20:52)
[2019-09-16 05:37] LABS: Basophils # 0.1 10*3/uL (0.0-0.2); Basophils % 1.1 % (0.0-0.8); Eosinophils # 0.2 10*3/uL (0.0-0.87); Eosinophils % 2.3 % (0.00-10.9); Hematocrit 42.6 VOL% (42.0-52.0); Hemoglobin 13.1 GM/DL (14.0-18.0); Immature Granulocytes % 3.7 %; Lymphocytes # 2.1 10*3/uL (1.4-4.0); Lymphocytes % 25.1 % (21.2-54.2); Mean Corpuscular HGB Conc 30.8 GM/DL (32-36); Mean Corpuscular Volume 78.6 FL (87-102); Mean Platelet Volume 9.5 FL (9.6-12.0); Monocytes % 6.3 % (1.7-12.7); Neutrophils % 61.5 % (38.7-73.9); Platelet Count 297 T/CUMM (130-400); Red Blood Count 5.42 MC/CUMM (3.8-5.5); Red Cell Distribution Width 16.2 % (9.3-17.3); White Blood Count 8.2 T/CUMM (4-12)
[2019-09-16 05:57] LABS: Calcium 8.8 MG/DL (8.5-10.1); Osmolality,Calculated 268.2 MOS/KG (273-304)
[2019-09-16] MEDS: CHOLESTYRAMINE 4 GM PACK PO SCH (08:34)
[2019-09-17] MEDS: VANCOMYCIN 50 MG/ML 60 ML/BOTTLE PO SCH ×3 (04:12→14:30)
[2019-09-17] MEDS: CEFEPIME 1,000 MG in SODIUM CHLORIDE 0.9% 100 ML IV SCH ×3 (04:12→14:51)
[2019-09-17 05:41] LABS: Basophils # 0.1 10*3/uL (0.0-0.2); Basophils % 1.1 % (0.0-0.8); Eosinophils # 0.2 10*3/uL (0.0-0.87); Eosinophils % 2.8 % (0.00-10.9); Hematocrit 42.9 VOL% (42.0-52.0); Hemoglobin 13.4 GM/DL (14.0-18.0); Immature Granulocytes % 4.1 %; Immature Granulocytes Absolute 0.29 #; Lymphocytes # 1.8 10*3/uL (1.4-4.0); Lymphocytes % 25.1 % (21.2-54.2); Mean Corpuscular HGB Conc 31.2 GM/DL (32-36); Mean Corpuscular Volume 78.3 FL (87-102); Mean Platelet Volume 9.5 FL (9.6-12.0); Monocytes % 7.4 % (1.7-12.7); Neutrophils % 59.5 % (38.7-73.9); Platelet Count 326 T/CUMM (130-400); Red Blood Count 5.48 MC/CUMM (3.8-5.5); White Blood Count 7.2 T/CUMM (4-12)
[2019-09-17 05:59] LABS: Osmolality,Calculated 279.4 MOS/KG (273-304)
[2019-09-17 15:50] VITALS: BP 113/76
== END 2019-09-17 16:33 | disposition home health service (06) | DRG 372 ==
LOC: N.ED 11:02 → N.EDINP 14:38 → SUATTDRO 14:38 → N.2E 17:00
PROVIDERS: ADMIT Internal Medicine; ATTEND Hospitalist

== ENCOUNTER 2019-11-22 05:47 | Inpatient (IN) ==
[2019-11-16 12:20] LABS: Basophils % 0.5 % (0.0-0.8); Eosinophils # 0.1 10*3/uL (0.0-0.87); Eosinophils % 1.2 % (0.00-10.9); Hematocrit 47.6 VOL% (42.0-52.0); Immature Granulocytes % 0.7 %; Immature Granulocytes Absolute 0.04 #; Lymphocytes # 1.7 10*3/uL (1.4-4.0); Lymphocytes % 27.6 % (21.2-54.2); Mean Corpuscular HGB Conc 31.5 GM/DL (32-36); Mean Corpuscular Volume 79.3 FL (87-102); Mean Platelet Volume 10.5 FL (9.6-12.0); Monocytes % 5.9 % (1.7-12.7); Neutrophils % 64.1 % (38.7-73.9); Platelet Count 246 T/CUMM (130-400); Red Cell Distribution Width 16.1 % (9.3-17.3); White Blood Count 6.1 T/CUMM (4-12)
[2019-11-16 12:54] LABS: Calcium 9.1 MG/DL (8.5-10.1); Osmolality,Calculated 275.7 MOS/KG (273-304)
[2019-11-22] MEDS ORDERED: ceFAZolin 1,000 MG in SYRINGE 1 EACH IV ONE (06:30)
[2019-11-22] MEDS ORDERED: LACTATED RINGERS 1,000 ML IV SCH (07:00)
[2019-11-22] MEDS ORDERED: ONDANSETRON 4 MG/2 ML VIAL ONE ×2 (08:29→08:36)
[2019-11-22] MEDS: HYDROmorphone 2 MG/1 ML VIAL IV PRN ×9 (08:30→22:29)
[2019-11-22] MEDS ORDERED: HYDROmorphone 2 MG/1 ML VIAL ONE (08:31)
[2019-11-22] MEDS ORDERED: ONDANSETRON 4 MG/2 ML VIAL IV PRN (08:33)
[2019-11-22] MEDS ORDERED: propofoL 200 MG/20 ML VIAL IV ONE (08:35)
[2019-11-22] MEDS ORDERED: SEVOFLURANE 1 UNIT/15 MINUTE INH ONE (08:35)
[2019-11-22] MEDS ORDERED: LIDOCAINE 2% 5 ML VIAL ONE (08:35)
[2019-11-22] MEDS ORDERED: MIDAZOLAM 2 MG/2 ML VIAL ONE (08:36)
[2019-11-22] MEDS ORDERED: GLYCOPYRROLATE 0.4 MG/2 ML VIAL ONE (08:36)
[2019-11-22] MEDS ORDERED: fentaNYL 100 MCG/2 ML VIAL ONE (08:36)
[2019-11-22] MEDS ORDERED: SUCCINYLCHOLINE 200 MG/10 ML VIAL ONE (08:36)
[2019-11-22] MEDS ORDERED: ACETAMINOPHEN 1,000 MG/100 ML VIAL IV ONE (08:36)
[2019-11-22] MEDS ORDERED: DEXAMETHASONE 4 MG/1 ML VIAL ONE (08:36)
[2019-11-22] MEDS ORDERED: PHENYLEPHRINE 1 MG/10 ML SYRINGE IV ONE (08:37)
[2019-11-22] MEDS ORDERED: MEPERIDINE 25 MG/1 ML VIAL ONE (08:55)
[2019-11-22] MEDS ORDERED: MEPERIDINE 25 MG/1 ML VIAL IV PRN (08:57)
[2019-11-22] MEDS ORDERED: KETOROLAC 15 MG/1 ML VIAL IV PRN (09:32)
[2019-11-22] MEDS ORDERED: HYDROmorphone 2 MG/1 ML VIAL IV PRN (09:32)
[2019-11-22] MEDS ORDERED: ALBUTEROL/IPRATROPIUM 3 ML NEB RESP TX PRN (09:32)
[2019-11-22] MEDS: LACTATED RINGERS 1,000 ML IV SCH ×2 (12:12→18:38)
[2019-11-22] MEDS: cefOXitin 2,000 MG in SYRINGE 1 EACH IV SCH ×2 (14:08→22:01)
[2019-11-23] MEDS: HYDROmorphone 2 MG/1 ML VIAL IV PRN ×2 (01:54→05:39)
[2019-11-23] MEDS: cefOXitin 2,000 MG in SYRINGE 1 EACH IV SCH ×2 (03:30→04:40)
[2019-11-23] MEDS ORDERED: cefOXitin 2,000 MG in SYRINGE 1 EACH IV SCH (04:30)
[2019-11-23] MEDS: LACTATED RINGERS 1,000 ML IV SCH ×3 (04:40→18:14)
[2019-11-23 06:11] LABS: Basophils % 0.1 % (0.0-0.8); Eosinophils % 0.3 % (0.00-10.9); Hemoglobin 14.4 GM/DL (14.0-18.0); Immature Granulocytes % 0.5 %; Immature Granulocytes Absolute 0.04 #; Lymphocytes # 1.7 10*3/uL (1.4-4.0); Lymphocytes % 22.4 % (21.2-54.2); Mean Corpuscular Volume 78.3 FL (87-102); Mean Platelet Volume 10.1 FL (9.6-12.0); Monocytes % 9.6 % (1.7-12.7); Neutrophils % 67.1 % (38.7-73.9); Platelet Count 241 T/CUMM (130-400); Red Blood Count 5.75 MC/CUMM (3.8-5.5); Red Cell Distribution Width 14.9 % (9.3-17.3); White Blood Count 7.7 T/CUMM (4-12)
[2019-11-23 06:23] LABS: Calcium 9.1 MG/DL (8.5-10.1); Osmolality,Calculated 269.1 MOS/KG (273-304)
[2019-11-23] MEDS: ONDANSETRON 4 MG/2 ML VIAL IV PRN ×2 (07:24→15:33)
[2019-11-23] MEDS: PANTOPRAZOLE 40 MG TABLET PO SCH (08:13)
[2019-11-23] MEDS ORDERED: PROMETHAZINE 25 MG/1 ML VIAL IM PRN (09:20)
[2019-11-24] MEDS: LACTATED RINGERS 1,000 ML IV SCH ×2 (03:53→10:50)
[2019-11-24 06:03] LABS: Basophils % 0.2 % (0.0-0.8); Eosinophils % 0.1 % (0.00-10.9); Hematocrit 43.2 VOL% (42.0-52.0); Hemoglobin 13.9 GM/DL (14.0-18.0); Immature Granulocytes % 0.5 %; Immature Granulocytes Absolute 0.05 #; Lymphocytes % 9.6 % (21.2-54.2); Mean Corpuscular HGB Conc 32.2 GM/DL (32-36); Mean Corpuscular Volume 79.3 FL (87-102); Mean Platelet Volume 10.4 FL (9.6-12.0); Monocytes % 8.4 % (1.7-12.7); Neutrophils % 81.2 % (38.7-73.9); Platelet Count 223 T/CUMM (130-400); Red Blood Count 5.45 MC/CUMM (3.8-5.5); Red Cell Distribution Width 14.8 % (9.3-17.3)
[2019-11-24 06:15] LABS: Calcium 8.8 MG/DL (8.5-10.1)
[2019-11-24] MEDS: PANTOPRAZOLE 40 MG TABLET PO SCH (10:48)
[2019-11-25] MEDS: LACTATED RINGERS 1,000 ML IV SCH ×2 (08:30→15:21)
[2019-11-25] MEDS: PANTOPRAZOLE 40 MG TABLET PO SCH (09:32)
[2019-11-25] MEDS: ACETAMINOPHEN 325 MG TABLET PO PRN (09:32)
[2019-11-26 07:44] VITALS: BP 120/73
[2019-11-26] MEDS: ACETAMINOPHEN 325 MG TABLET PO PRN (08:51)
[2019-11-26] MEDS: PANTOPRAZOLE 40 MG TABLET PO SCH (08:51)
[2019-11-26] MEDS ORDERED: LACTOBACILLUS ACIDOPHILUS/BULGARICUS CAPLET PO SCH (10:45)
[2019-11-26] MEDS ORDERED: ERGOCALCIFEROL 50,000 UNIT CAPSULE PO SCH (11:00)
[2019-11-27] MEDS ORDERED: MULTIVITAMIN (CENTRUM) TABLET PO SCH (09:00)
== END 2019-11-26 14:24 | disposition home health service (06) | DRG 330 ==
LOC: N.SDSINP 05:47 → EDSTATUS 07:30 → N.3E 09:15
PROVIDERS: ADMIT Surgery; ATTEND Surgery